=== PATIENT | female | born 1955 | race Caucasian/White ===

== ENCOUNTER 2019-11-21 13:44 | Outpatient (CLI) | payer BC, SELFPAY ==
[2019-11-21 14:12] LABS: Blood Urea Nitrogen 17 mg/dL (7-17); Calcium 9.9 mg/dL (8.4-10.2); Carbon Dioxide 29 mmol/L (22-30); Chloride 101 mmol/L (98-107); Estimated Glomerular Filt Rate > 60; Glucose 98 mg/dL (65-105); Potassium 4.2 mmol/L (3.4-5.0); Sodium 137 mmol/L (137-145)
== END 2019-11-21 13:45 | disposition home or self-care (01) ==
PROVIDERS: PCP Internal Medicine; Visit Provider Internal Medicine Cardiovascular Disease
DX: I10 Essential (primary) hypertension (principal)
CPT/HCPCS: 36415; 80048; 83735

== ENCOUNTER 2019-12-25 10:03 | Outpatient (CLI) | payer BC, SELFPAY ==
--- NOTE | ~2019-12-25 | NM_ITS ---
EXAMINATION: NM geeta stress w perfusion DATE: 12/25/2019 12:17 INDICATION: Dyspnea on exertion TECHNIQUE: Rest images were obtained following intravenous administration of 9.4 mCi Tc99m tetrofosmi n (Myoview). The patient was infused intravenously with Lexiscan (Regadenoson). Then, 30 mCi Tc99m te trofosmin (Myoview) was administered intravenously, and stress images were obtained. Data was reconst ructed into short axis and horizontal and vertical long axis SPECT images. Gated SPECT images were al so obtained. COMPARISON: None. FINDINGS: There is no definite reversible or fixed perfusion abnormality to suggest ischemia or infar ction. There is normal left ventricular chamber size, wall motion and ejection fraction. Left ventr icular ejection fraction measures 68%. IMPRESSION: 1. Normal myocardial perfusion at rest and during stress. 2. Left ventricular ejection fraction measuring 68%. Reviewed, dictated and finalized at location A.
--- NOTE | 2019-12-25 10:37 | EST_ITS ---
Patient Info Name: Caridad Gibson Age: 64 years : 1955 Gender: Female Ht: 68 in Wt: 212 lbs BSA: 2.18 m2 Exam Date: 12/25/2019 11:15 AM Exam Location: [facility] Stress Patient Status: Outpatient Admit Date: 12/25/2019 Staff Ordering Physician: Yazan Castellanos DO Attending Provider: Yazan Castellanos DO Exercise Technologist: Dianne Lopez RDCS Exercise Physician: Yazan Castellanos DO Exam Type: CA stress geeta w NM Study Info Indications R06.09 - Other forms of dyspnea A regadenoson stress test was performed. Summary 1. 1. Negative lexiscan stress test for ischemic ST changes by ECG criteria. 2. 2. Baseline hypertension. 3. 3. Nuclear scan to follow and will be reported separately. Please correlate with it. 4. 4. Patient informed of the above results. Protocol: Lexiscan Stress ECG Details Stage: REST Duration (min): 2 min : 20 sec HR (bpm): 89 SBP (mmHg): 163 DBP (mmHg): 96 Stage: REST Duration (min): 7 min : 7 sec HR (bpm): 91 SBP (mmHg): 163 DBP (mmHg): 96 Stage: STAGE 1 Duration (min): 1 min : 0 sec HR (bpm): 120 SBP (mmHg): 164 DBP (mmHg): 83 Stage: RECOVERY Duration (min): 1 min : 0 sec HR (bpm): 125 SBP (mmHg): 161 DBP (mmHg): 82 Stage: RECOVERY Duration (min): 2 min : 0 sec HR (bpm): 120 SBP (mmHg): 161 DBP (mmHg): 82 Stage: RECOVERY Duration (min): 3 min : 0 sec HR (bpm): 116 SBP (mmHg): 159 DBP (mmHg): 80 Stage: RECOVERY Duration (min): 4 min : 0 sec HR (bpm): 117 SBP (mmHg): 159 DBP (mmHg): 80 Stage: RECOVERY Duration (min): 5 min : 0 sec HR (bpm): 115 SBP (mmHg): 145 DBP (mmHg): 76 Stage: RECOVERY Duration (min): 6 min : 0 sec HR (bpm): 114 SBP (mmHg): 145 DBP (mmHg): 76 Stage: RECOVERY Duration (min): 6 min : 48 sec HR (bpm): 112 SBP (mmHg): 147 DBP (mmHg): 72 Rest HR: 91 bpm Peak HR: 128 bpm Rest Sys BP: 163 mmHg Peak Sys BP: 164 mmHg Max Pred HR: 157 bpm % Max Pred HR: 82 % Target HR: 133 bpm Max RPP: 20,992 bpm*mmHg Termination Reason: Completed protocol Cardiac Symptoms: Shortness of breath Total Time: 1 min : 0 sec Rest Bethea BP: 96 mmHg Peak Bethea BP: 83 mmHg Total Dose: 0.4 mg Resting ECG Sinus rhythm, IRBBB, PRWP. Stress ECG No ST changes. Arrhythmias None. Report Signatures
== END 2019-12-25 10:04 | disposition home or self-care (01) ==
PROVIDERS: PCP Internal Medicine; Visit Provider Internal Medicine Cardiovascular Disease
DX: R06.09 Other forms of dyspnea (principal); I10 Essential (primary) hypertension
CPT/HCPCS: 78452; 93017; A9502; J2785

== ENCOUNTER 2020-01-25 13:27 | Outpatient (CLI) | payer BC, SELFPAY ==
--- NOTE | 2020-01-27 16:45 | WPDPFTINT ---
PFT Interpretation PFT Interpretation: DOS: 01/25/2020 REQUESTING: dyspnea REASON FOR TESTING: Adelfo Manzanares PULMONARY FUNCTION TESTS Results are reproducible and reliable. Spirometry: FEV1 114%, FVC 116%. Normal FEV1%. No change with bronchodilator. AUG07-95% is 77% and increases 27% with bronchodilator. Lung volumes: TLC 122%, mild hyperinflation. Residual volume 133%, mild air trapping. Airway resistance 143%, increased. Diffusion: DLCO is 74% normal. Flow volume loop: Normal after bronchodilator. IMPRESSION: Mild hyperinflation and air trapping consistent with an obstructive process. Compared to a prior study 01/01/2019, the total lung capacity and residual volume are both decreased, closer to normal. TLC was 154%and RV was 218%. Lack of response to bronchodilator does not preclude use if clinically indicated. Dixie Malagon MD
== END 2020-01-25 13:28 | disposition home or self-care (01) ==
LOC: ANHPFT 13:28
PROVIDERS: PCP Internal Medicine; Visit Provider Internal Medicine Critical Care Medicine
DX: R06.00 Dyspnea, unspecified (principal); R91.8 Other nonspecific abnormal finding of lung field
CPT/HCPCS: 94060; 94726; 94729

== ENCOUNTER 2020-02-25 08:41 | Outpatient (CLI) | payer BC, SELFPAY ==
[2020-02-25] MEDS: SODIUM CHLORIDE 0.9% INJ 10 ML VIAL IV PUSH (10:58)
--- NOTE | 2020-02-29 12:17 | WPDPFTINT ---
PFT Interpretation PFT Interpretation: DOS: 02/25/2020 REQUESTING: Adelfo Grant REASON FOR TESTING: Dyspnea METHACHOLINE CHALLENGE This test was conducted per ATS guidelines. A previous study on 01/25/2020 showed normal spirometry. The patient was exposed to sequentially increasing doses of methacholine in the usual manner. Level 1 - saline Level 2 - 0.025 mg Level 3 - 0.25 mg Level 4 - 2.5 mg Level 5 - 10 mg Level 6 - 25 mg The test completed through the final level with maximal dose of methacholine, 25 mg without a drop in flows. Flows remained normal after bronchodilator was administered. IMPRESSION: This is a negative methacholine challenge with the patient having no significant decrease in flows at the highest dose of methacholine. The best use for a methacholine challenge is to rule out asthma. Clinical correlation is advised. Dixie Malagon MD
== END 2020-02-25 08:42 | disposition home or self-care (01) ==
LOC: ANHPFT 08:42
PROVIDERS: PCP Internal Medicine; Visit Provider Internal Medicine Critical Care Medicine
DX: R06.00 Dyspnea, unspecified (principal)
CPT/HCPCS: 36415; 82785; 86003; 94070; J7674

== ENCOUNTER 2020-05-10 11:14 | Outpatient (NON) | payer BC, SELFPAY ==
[2020-05-11 01:49] LABS: SARS-CoV-2 RNA PCR Positive
== END 2020-05-10 11:15 ==
LOC: ANHCOVIDDT 11:15
PROVIDERS: PCP Internal Medicine; Visit Provider Nurse Practitioner
DX: U07.1 COVID-19 (principal)
CPT/HCPCS: 87635; C9803; U0003

== ENCOUNTER 2020-10-02 08:50 | Outpatient (CLI) | payer BC, SELFPAY ==
[2020-10-02 09:09] LABS: Basophils Absolute Auto 0.1 K/mm3 (0.0-0.1); Basophils Percent Auto 0.7 % (0.2-1.2); Eosinophils Absolute Auto 0.2 K/mm3 (0-0.3); Eosinophils Percent Auto 2.6 % (0-4.4); Hematocrit 37.8 % (37.0-47.0); Hemoglobin 12.4 g/dL (12.0-15.0); Immature Granulocyte Absolute 0.04 K/mm3 (0.00-0.031); Immature Granulocyte Percent A 0.6 % (0-0.5); Lymphocytes Absolute Auto 2.03 K/mm3 (0.9-3.2); Mean Corpuscular HGB Conc 32.8 g/dl (32-36); Mean Corpuscular Hemoglobin 30.2 pg (26-34); Mean Corpuscular Volume 92.2 fl (80-100); Mean Platelet Volume 10.1 fl (7.4-10.4); Monocytes Absolute Auto 0.6 K/mm3 (0.1-0.6); Monocytes Percent Auto 8.4 % (2.6-8.5); Neutrophils Absolute Auto 4.1 K/mm3 (1.3-6.7); Neutrophils Percent Auto 58.7 % (45.5-73.1); Platelet Count Result 289 k/mm3 (150-375); Red Cell Distribution Width 12.8 % (11.5-14.5)
[2020-10-02 09:21] LABS: Alanine Aminotransferase 28 U/L (4-35); Albumin Level 4.6 g/dL (3.5-5.1); Alkaline Phosphatase 70 U/L (38-126); Anion Gap 8 mmol/L (8-16); Aspartate Amino Transferase 38 U/L (14-36); Bilirubin,Total 0.6 mg/dL (0.2-1.3); Blood Urea Nitrogen 18 mg/dL (7-17); Calcium 9.5 mg/dL (8.4-10.2); Carbon Dioxide 26 mmol/L (22-30); Chloride 103 mmol/L (98-107); Cholesterol 226 mg/dL (0-200); Estimated Glomerular Filt Rate > 60; Glucose 105 mg/dL (65-105); HDL Direct 49 mg/dL; Potassium 4.5 mmol/L (3.4-5.0); Sodium 137 mmol/L (137-145); Triglycerides 263 mg/dL (<150)
[2020-10-02 09:31] LABS: LDL Cholesterol Direct 109 mg/dL
[2020-10-02 10:10] LABS: Vitamin D 25 Hydroxy 43.4 ng/mL
== END 2020-10-02 08:51 | disposition home or self-care (01) ==
PROVIDERS: PCP Internal Medicine; Visit Provider Nurse Practitioner
DX: E55.9 Vitamin D deficiency, unspecified (principal); E78.2 Mixed hyperlipidemia; I10 Essential (primary) hypertension
CPT/HCPCS: 36415; 80053; 80061; 82306; 85025

== ENCOUNTER 2020-10-09 11:29 | Outpatient (CLI) | payer BC, SELFPAY ==
--- NOTE | ~2020-10-09 | XR_ITS ---
EXAMINATION: XR hip RT min 3V w AP pelvis INDICATION: Right hip pain TECHNIQUE: AP view the pelvis and three views of the right hip are obtained. COMPARISON: None available FINDINGS: Bone alignment is normal. There is no fracture. There is mild osteoarthritis of the hips. O steitis pubis is noted. The soft tissues are unremarkable. IMPRESSION: 1. Mild osteoarthritis. Reviewed, dictated and finalized at location B. IMPRESSION: 1. Mild osteoarthritis.
== END 2020-10-09 11:30 | disposition home or self-care (01) ==
PROVIDERS: PCP Internal Medicine; Visit Provider Nurse Practitioner
DX: M16.11 Unilateral primary osteoarthritis, right hip (principal)
CPT/HCPCS: 73502

== ENCOUNTER 2021-04-24 12:12 | Outpatient (CLI) | payer BC, SELFPAY ==
--- NOTE | ~2021-04-24 | XR_ITS ---
EXAMINATION: XR hand RT min 3V DATE: 04/24/2021 12:35 INDICATION: Right hand pain. TECHNIQUE: 3 views of right hand were obtained. COMPARISON: None. FINDINGS: Bone alignment is normal. No fracture. There is severe osteoarthritis of first carpometacar pal joint. There is mild osteoarthritis of most of the metacarpophalangeal joints and interphalangeal joints. There is moderate osteoarthritis of third proximal interphalangeal joint. IMPRESSION: 1. Polyarticular osteoarthritis. Reviewed, dictated and finalized at location A.
== END 2021-04-24 12:13 | disposition home or self-care (01) ==
LOC: ANHIMG 12:16
PROVIDERS: PCP Internal Medicine; Visit Provider Clinical Nurse Specialist
DX: M19.041 Primary osteoarthritis, right hand (principal)
CPT/HCPCS: 73130

== ENCOUNTER 2021-06-04 07:55 | Outpatient (CLI) | payer BC, SELFPAY ==
[2021-06-04 08:29] LABS: Alanine Aminotransferase 22 U/L (4-35); Albumin Level 4.6 g/dL (3.5-5.1); Alkaline Phosphatase 72 U/L (38-126); Anion Gap 8 mmol/L (8-16); Aspartate Amino Transferase 27 U/L (14-36); Bilirubin,Total 0.4 mg/dL (0.2-1.3); Blood Urea Nitrogen 16 mg/dL (7-17); Calcium 9.7 mg/dL (8.4-10.2); Carbon Dioxide 27 mmol/L (22-30); Chloride 99 mmol/L (98-107); Cholesterol 178 mg/dL (0-200); Estimated Glomerular Filt Rate > 60; Glucose 114 mg/dL (65-110); HDL Direct 50 mg/dL; Potassium 4.4 mmol/L (3.4-5.0); Sodium 134 mmol/L (137-145); Triglycerides 190 mg/dL (<150)
[2021-06-04 08:40] LABS: LDL Cholesterol Direct 83 mg/dL
== END 2021-06-04 07:56 | disposition home or self-care (01) ==
PROVIDERS: PCP Internal Medicine; Visit Provider Internal Medicine Cardiovascular Disease
DX: E78.2 Mixed hyperlipidemia (principal)
CPT/HCPCS: 36415; 80053; 80061

== ENCOUNTER 2021-06-17 02:01 | Day surgery (SDC) | payer BC, OTHER, SELFPAY ==
[2021-06-15 13:18] VITALS: BMI 31.9
--- NOTE | 2021-06-15 13:24 | PC.NURSE ---
Report to the Outpatient Waiting Room, entrance under the green pavilion located off [facility], at time 0900 on 06/17/21 . OR Time: __1000 . - You and your visitor will be asked a series of questions to screen for COVID 19 for your protection. - A mask is required within the hospital. - Only one visitor is allowed at this time. Patient visitors will be guided where to wait when not with patient. Preoperative COVID Testing Requirements: No COVID Test needed if: (proof is required; if not received patient will have Rapid Test prior to entry) - Patient has received COVID Vaccine at least 14 days prior to procedure date or - Patient has positive COVID test result within last 90 days of surgery date. COVID Test needed if above criteria is not met If not COVID vaccinated a COVID test must be conducted within 72 hours of surgery and patient is asked to isolate self from time of testing until procedure. You will go to the [employer] [facility] for your COVID testing. The [employer] [facility] is located at the corner of [address] [facility]. You will only be called if COVID results are positive and your surgeon may reschedule your elective surgery date. Patients may have clear liquids (water, carbonated beverages, clear teas, apple juice) until 3 hours prior to surgery with a maximum of 20 ounces. - No food from midnight until time of surgery - Infants may have breast milk until 4 hours before surgery, formula 6 hours prior to surgery. LIGHT BREAKFAST - Children will be allowed to drink immediately following surgery. If applicable, please bring a bottle or sippy cup to assist with drinking. Juice, water, soda, and popsicles are readily available. For infants on formula, please bring formula the day of surgery. Pacifiers are allowed. Take the following medications with a SIP of water the morning of surgery: __ALL ROUTINE AM MEDS Medications to discontinue per physician Date to take last dose Please no make-up, nail french, hairspray, perfume, deodorant, or body powder the day of surgery. No jewelry (including any body piercings) or valuables the day of surgery, leave them at home. Please take a shower or bath the night before, or the morning of, surgery with an antibacterial soap. Wear comfortable, loose fitting clothing. Children are encouraged to wear pajamas. - Jewelry must be removed prior to entering the operating room. Rings and piercings that are not removed may be cut off. - The hospital will not accept responsibility for valuables. - Please leave all valuables, including medications, at home the day of surgery. If you are going home after surgery, a licensed furniture delivery driver must drive you home. - NO public transportation without another adult. - We recommend that an adult stay with you for 24 hours following discharge. - We also recommend that you do not drive, make important decision, drink alcoholic beverages, or take any drugs that were not prescribed by your health care provider for at least 24 hours after your discharge time. For Pediatric surgeries, we recommend two adults accompany the child home (only one inside the building at this time). Follow any additional instructions given to you from your surgeon. Telephone instructions given to _PATIENT and asked if any additional questions and then verbalized understanding. Patient advised to call surgeon office or pre surgery nurse liaison [phone] if any additional questions.
[2021-06-17 09:17] VITALS: BP 181/84; PULSE 87; RESP 16; TEMP 36.8; O2SAT 98
--- NOTE | 2021-06-17 09:40 | WPDHPUPDATE1 ---
History and Physical Update Update Date/Time: 06/17/21 09:40 History and Physical has been reviewed, including an updated exam of the patient. There are NO changes in the patient's condition. Risks, benefits, and alternatives have been discussed and questions answered. Patient agrees to proceed with procedure.
[2021-06-17 09:50] VITALS: BP 190/91; PULSE 85; RESP 16; O2SAT 97
[2021-06-17 10:00] VITALS: BP 193/90; PULSE 91; RESP 16; O2SAT 96
[2021-06-17 10:10] VITALS: BP 171/79; PULSE 80; RESP 16; O2SAT 95
[2021-06-17 10:20] VITALS: BP 168/81; PULSE 79; RESP 16; O2SAT 95
[2021-06-17] MEDS: BACITRACIN OINTMENT 15 GM TUBE 1 APPLIC TOPICAL (10:25)
[2021-06-17 10:32] VITALS: BP 154/85; PULSE 74; RESP 20
--- NOTE | 2021-06-17 10:36 | P.OP_ITS ---
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 The patient was taken to the operating room and placed supine on the operating table. A time-out was held and confirmed. The right upper extremity was prepped and draped in the usual fashion. The site was carefully re-identified and marked for longitudinal incision. The area was infiltrated with 1% lidocaine with epinephrine. Adequate anesthesia was obtained. No tourniquet was utilized. The longitudinal incision was made as marked and blunt dissection through subcutaneous tissue revealed the extensor tendon just beneath the distal edge of the extensor retinaculum. The tendon with widened caliber at that area was clearly identified. An incision was made along 1 side of this into the tendon. The gelatinous content of the ganglion cyst was found and carefully stripped out with a curette and a 15 blade. Remainder of the tendon was not harmed. No repair with made on that. Additional synovitis was not noted. The skin wound was closed with interrupted 4-0 Monocryl sutures. The bandage with Xeroform and gauze and George wrap was applied. The patient was discharged with instructions in wound care and follow-up. She has a prescription for hydrocodon e 5/325 4. Estimated Blood Loss 1 Tourniquet Time 0 Drains No Packing No Pathology none sent Complications No immediate complications Condition stable Disposition same day
== END 2021-06-17 11:05 | disposition home or self-care (01) ==
PROVIDERS: PCP Internal Medicine; Visit Provider Plastic Surgery
PROC: (CPT 26160; principal; 2021-06-17 10:00)
DX: M67.441 Ganglion, right hand (principal); I10 Essential (primary) hypertension; F41.9 Anxiety disorder, unspecified
CPT/HCPCS: 26160; A9270

== ENCOUNTER 2021-12-07 09:29 | Outpatient (CLI) | payer BC, OTHER, SELFPAY ==
[2021-12-07 10:01] LABS: Alanine Aminotransferase 26 U/L (6-35); Albumin Level 4.8 g/dL (3.5-5.1); Alkaline Phosphatase 70 U/L (38-126); Anion Gap 5 mmol/L (8-16); Aspartate Amino Transferase 28 U/L (14-36); Bilirubin,Total 0.7 mg/dL (0.2-1.3); Blood Urea Nitrogen 14 mg/dL (7-17); Calcium 9.4 mg/dL (8.4-10.2); Carbon Dioxide 30 mmol/L (22-30); Chloride 102 mmol/L (98-107); Cholesterol 204 mg/dL (0-200); Estimated Glomerular Filt Rate > 60; Glucose 117 mg/dL (65-110); HDL Direct 46 mg/dL; Potassium 4.6 mmol/L (3.4-5.0); Sodium 137 mmol/L (137-145); Triglycerides 250 mg/dL (<150)
[2021-12-07 10:09] LABS: LDL Cholesterol Direct 92 mg/dL
== END 2021-12-07 09:30 | disposition home or self-care (01) ==
PROVIDERS: PCP Internal Medicine; Visit Provider Internal Medicine Cardiovascular Disease
DX: E78.2 Mixed hyperlipidemia (principal)
CPT/HCPCS: 36415; 80053; 80061

== ENCOUNTER 2022-04-05 12:05 | Outpatient (CLI) | payer BC, SELFPAY ==
[2022-04-05 18:59] LABS: Basophils Absolute Auto 0.1 K/mm3 (0.0-0.1); Eosinophils Absolute Auto 0.3 K/mm3 (0-0.3); Hematocrit 40.2 % (37.0-47.0); Hemoglobin 12.9 g/dL (12.0-15.0); Immature Granulocyte Absolute 0.03 K/mm3 (0.00-0.031); Immature Granulocyte Percent A 0.4 % (0-0.5); Lymphocytes Absolute Auto 1.58 K/mm3 (0.9-3.2); Mean Corpuscular HGB Conc 32.1 g/dl (32-36); Mean Corpuscular Hemoglobin 29.7 pg (26-34); Mean Corpuscular Volume 92.4 fl (80-100); Mean Platelet Volume 10.5 fl (7.4-10.4); Monocytes Absolute Auto 0.7 K/mm3 (0.1-0.6); Monocytes Percent Auto 10.2 % (2.6-8.5); Neutrophils Absolute Auto 4.1 K/mm3 (1.3-6.7); Neutrophils Percent Auto 60.4 % (45.5-73.1); Platelet Count Result 368 k/mm3 (150-375); Red Blood Count 4.35 M/mm3 (4.2-5.4); Red Cell Distribution Width 12.6 % (11.5-14.5); White Blood Count 6.9 K/mm3 (4.5-10.0)
[2022-04-05 20:16] LABS: Alanine Aminotransferase 26 U/L (6-35); Albumin Level 4.9 g/dL (3.5-5.1); Alkaline Phosphatase 88 U/L (38-126); Anion Gap 14 mmol/L (8-16); Aspartate Amino Transferase 34 U/L (14-36); Bilirubin,Total 0.5 mg/dL (0.2-1.3); Blood Urea Nitrogen 12 mg/dL (7-17); Calcium 10.8 mg/dL (8.4-10.2); Carbon Dioxide 26 mmol/L (22-30); Chloride 98 mmol/L (98-107); Cholesterol 139 mg/dL (0-200); Estimated Glomerular Filt Rate > 60; Glucose 101 mg/dL (65-110); HDL Direct 36 mg/dL; Potassium 4.4 mmol/L (3.4-5.0); Sodium 138 mmol/L (137-145); Triglycerides 155 mg/dL (<150)
[2022-04-05 20:27] LABS: LDL Cholesterol Direct 63 mg/dL
[2022-04-05 20:33] LABS: Vitamin D 25 Hydroxy 45.1 ng/mL
== END 2022-04-05 12:06 | disposition home or self-care (01) ==
PROVIDERS: PCP Internal Medicine; Visit Provider Clinical Nurse Specialist
DX: J44.9 Chronic obstructive pulmonary disease, unspecified (principal); I10 Essential (primary) hypertension; E78.5 Hyperlipidemia, unspecified; E55.9 Vitamin D deficiency, unspecified
CPT/HCPCS: 36415; 80053; 80061; 82306; 84443; 85025

== ENCOUNTER 2022-04-07 07:35 | Outpatient (CLI) | payer BC, SELFPAY ==
--- NOTE | ~2022-04-07 | US_ITS ---
EXAMINATION: US right upper quadrant DATE: 04/07/2022 08:06 INDICATION: Abdominal distention TECHNIQUE: Multiple grayscale and Doppler ultrasound images of the abdomen were obtained. COMPARISON: None available FINDINGS: The head and body of the pancreas are normal. The pancreatic tail is obscured by bowel gas. The liver is normal with normal echogenicity and echotexture. No surface nodularity. Normal hepatope leah flow in the main portal vein. The gallbladder is normal with no abnormal wall thickening, pericho lecystic fluid or stones. The normal common bile duct measures 4 mm. There was no sonographic Lopez sign. IMPRESSION: 1. Normal sonographic study of the gallbladder. Reviewed, dictated and finalized at location A.
== END 2022-04-07 07:36 | disposition home or self-care (01) ==
PROVIDERS: PCP Internal Medicine; Visit Provider Clinical Nurse Specialist
DX: R14.0 Abdominal distension (gaseous) (principal); K21.9 Gastro-esophageal reflux disease without esophagitis
CPT/HCPCS: 76705

== ENCOUNTER 2023-01-11 13:20 | Outpatient (CLI) | payer BC, SELFPAY ==
[2023-01-11 20:29] LABS: Basophils Absolute Auto 0.1 K/mm3 (0.0-0.1); Basophils Percent Auto 0.7 % (0.2-1.2); Eosinophils Absolute Auto 0.1 K/mm3 (0-0.3); Eosinophils Percent Auto 1.8 % (0-4.4); Hematocrit 37.5 % (37.0-47.0); Hemoglobin 11.9 g/dL (12.0-15.0); Immature Granulocyte Absolute 0.03 K/mm3 (0.00-0.031); Immature Granulocyte Percent A 0.4 % (0-0.5); Lymphocytes Absolute Auto 2.01 K/mm3 (0.9-3.2); Lymphocytes Percent Auto 29.9 % (18.3-44.2); Mean Corpuscular HGB Conc 31.7 g/dl (32-36); Mean Corpuscular Hemoglobin 29.5 pg (26-34); Mean Corpuscular Volume 92.8 fl (80-100); Mean Platelet Volume 10.6 fl (7.4-10.4); Monocytes Absolute Auto 0.6 K/mm3 (0.1-0.6); Monocytes Percent Auto 9.2 % (2.6-8.5); Neutrophils Absolute Auto 3.9 K/mm3 (1.3-6.7); Platelet Count Result 301 k/mm3 (150-375); Red Blood Count 4.04 M/mm3 (4.2-5.4); Red Cell Distribution Width 12.5 % (11.5-14.5); White Blood Count 6.7 K/mm3 (4.5-10.0)
[2023-01-11 21:02] LABS: Erythrocyte Sedimentation Rate 17 mm/hr (0-20)
[2023-01-11 21:21] LABS: Alanine Aminotransferase 22 U/L (6-35); Albumin Level 4.6 g/dL (3.5-5.1); Alkaline Phosphatase 67 U/L (38-126); Anion Gap 8 mmol/L (8-16); Aspartate Amino Transferase 35 U/L (14-36); Bilirubin,Total 0.8 mg/dL (0.2-1.3); Blood Urea Nitrogen 17 mg/dL (7-17); Calcium 9.8 mg/dL (8.4-10.2); Carbon Dioxide 32 mmol/L (22-30); Chloride 92 mmol/L (98-107); Cholesterol 188 mg/dL (0-200); Estimated Glomerular Filt Rate > 60; Glucose 92 mg/dL (65-110); HDL Direct 53 mg/dL; Potassium 4.1 mmol/L (3.4-5.0); Sodium 132 mmol/L (137-145); Triglycerides 169 mg/dL (<150)
[2023-01-11 21:32] LABS: LDL Cholesterol Direct 82 mg/dL
[2023-01-11 21:38] LABS: Rheumatoid Factor < 12.0 IU/ML (<12)
[2023-01-11 21:50] LABS: Thyroid Stimulating Hormone 0.929 uIU/mL (0.465-4.680)
[2023-01-11 22:15] LABS: Vitamin D 25 Hydroxy 56.9 ng/mL
[2023-01-12 15:27] LABS: Iron 137 ug/dL (37-170)
[2023-01-12 15:37] LABS: Percent Iron Saturation 28 % (20-50)
[2023-01-14 08:52] LABS: ANA Cascade Screen Negative (Negative)
== END 2023-01-11 13:21 | disposition home or self-care (01) ==
LOC: ANHGOSHLAB 13:22
PROVIDERS: PCP Internal Medicine; Visit Provider Clinical Nurse Specialist
DX: M25.40 Effusion, unspecified joint (principal); I10 Essential (primary) hypertension; E78.5 Hyperlipidemia, unspecified; E55.9 Vitamin D deficiency, unspecified
CPT/HCPCS: 36415; 80053; 80061; 82306; 82728; 83540; 83550; 84443; 85025; 85652; 86038; 86430

== ENCOUNTER → 2023-01-11 13:37 | Outpatient (CLI) | payer BC, SELFPAY ==
--- NOTE | ~2023-01-11 | XR_ITS ---
XR_CERV2-3V_CR DATE: 01/11/2023 13:53 INDICATION: Cervical radiculopathy TECHNIQUE: AP, open mouth, lateral views COMPARISON: None FINDINGS: There is reversal of cervical curvature. There is minimal anterolisthesis at C3-4. There is severe degenerative disc disease with nearly complete obliteration of disc space and promine nt spurring at C5-6 and C6-7, with associated mild retrolisthesis at C6-7. There is prominent uncovertebral joint spurring bilaterally at C4-5 and C5-6. There is degenerative c hange at the apophyseal joints. C1 and C2 are normally aligned and the odontoid process is intact. No fracture or dislocation or lock ed facet or prevertebral soft tissue swelling. IMPRESSION: Reversal cervical curvature Prominent cervical spondylosis Reviewed, dictated and finalized at Location A. Reviewed, dictated and finalized at location L.
== END ==
PROVIDERS: PCP Clinical Nurse Specialist; Visit Provider Clinical Nurse Specialist
DX: M47.22 Other spondylosis with radiculopathy, cervical region (principal)
CPT/HCPCS: 72040

== ENCOUNTER 2023-02-07 12:46 | Outpatient (CLI) | payer BC, SELFPAY ==
--- NOTE | ~2023-02-07 | MR_ITS ---
EXAMINATION: MR cervical spine wo con DATE: 02/07/2023 13:18 INDICATION: Cervical radiculopathy. TECHNIQUE: Magnetic resonance imaging (MRI) of the cervical spine was performed without intravenous c ontrast. COMPARISON: Cervical spine radiographs 01/11/2023 FINDINGS: There is 9 degrees dextrocurvature of cervical spine. There is kyphosis of cervical spine. There is 2 mm anterolisthesis of C3 on C4 and 2 mm retrolisthesis of C5 on C6. There is mild chronic anterior wedging of C4, C5, and C6 vertebral bodies. There is mildly decreased disc height at C3-C4 a nd severely decreased disc height at C4-C5 and C5-C6. The spinal cord signal intensity is normal. The following disc levels are specifically discussed: C2-C3: The disc does not extend beyond the endplate margin. There is no uncovertebral joint osteoarth ritis. There is ankylosis of the facet joints with moderate right and mild left hypertrophy. There is mild right neural foraminal stenosis. There is no central canal stenosis. C3-C4: There is a central protrusion. There is mild left uncovertebral joint osteoarthritis. There is severe left facet joint osteoarthritis. There is moderate left neural foraminal stenosis. There is n o central canal stenosis. C4-C5: The disc is bulging. There is severe bilateral uncovertebral joint osteoarthritis. There is mi ld right and severe left facet joint osteoarthritis. There is moderate bilateral neural foraminal porsha nosis. There is mild central canal stenosis with ventral indentation of spinal cord. C5-C6: This is bulging. There is severe bilateral uncovertebral joint osteoarthritis. There is modera te bilateral facet joint osteoarthritis. There is moderate bilateral neural foraminal stenosis. There is mild central canal stenosis with ventral indentation of the spinal cord. C6-C7: There is a central extrusion. There is mild left uncovertebral joint osteoarthritis. There is severe bilateral facet joint osteoarthritis. There is mild bilateral neural foraminal stenosis. There is mild central canal stenosis. C7-T1: There is a central protrusion. There is no uncovertebral joint osteoarthritis. There is severe right and moderate left facet joint osteoarthritis. There is mild right neural foraminal stenosis. T here is no central canal stenosis. IMPRESSION: 1. Severe cervical spondylosis. Reviewed, dictated and finalized at location A.
== END 2023-02-07 12:47 | disposition home or self-care (01) ==
PROVIDERS: PCP Clinical Nurse Specialist; Visit Provider Clinical Nurse Specialist
DX: M47.22 Other spondylosis with radiculopathy, cervical region (principal)
CPT/HCPCS: 72141

== ENCOUNTER → 2023-04-07 13:21 | Outpatient (CLI) | payer BC, SELFPAY ==
--- NOTE | ~2023-04-07 | MR_ITS ---
MRI of the lumbar spine Clinical History: Radiculopathy Technique: Axial T2-weighted images, and sagittal T1-weighted, T2-weighted, and T2 fat-sat images wer e acquired. Findings: There is no fracture identified. There is a 5 mm anterolisthesis of L3 over L4. There is 3 mm anterolisthesis of L4 over L5. No suspicious bone marrow signal abnormality seen. At L1-L2, there is minimal disc bulge and minimal facet arthropathy. No central canal stenosis or madison ral foraminal narrowing. At L2-L3, there is disc bulge and moderate facet arthropathy. There is mild central canal stenosis. B ilateral neural foramina are preserved. At L3-L4, there is disc bulge/uncovering with severe facet arthropathy. There is moderate to advanced central canal stenosis/thecal sac compression. There is mild bilateral neural foraminal narrowing. At L4-L5, there is diffuse disc bulge with advanced facet arthropathy. No central canal stenosis. The re is mild to moderate right neural foraminal narrowing. Left neural foramen preserved. At L5-S1, there is minimal disc bulge. There is mild facet arthropathy. No central canal stenosis or left neural foraminal narrowing. There is mild right neural foraminal narrowing. Paravertebral soft tissues are unremarkable. Impression: Moderate to advanced degenerative spondylosis, as detailed above. 5 mm anterolisthesis of L3 over L4. 3 mm anterolisthesis of L4 over L5. Reviewed, dictated and finalized at [facility]. Impression: Moderate to advanced degenerative spondylosis, as detailed above. 5 mm anterolisthesis of L3 over L4. 3 mm anterolisthesis of L4 over L5.
== END ==
PROVIDERS: PCP Clinical Nurse Specialist; Visit Provider Nurse Practitioner Family
DX: M47.26 Other spondylosis with radiculopathy, lumbar region (principal)
CPT/HCPCS: 72148

== ENCOUNTER 2024-02-03 11:50 | Emergency (ER) | payer MEDICARE, BC, SELFPAY ==
--- NOTE | ~2024-02-03 | XR_ITS ---
Right foot Technique: AP, oblique, and lateral views were obtained. Clinical History: Injury Findings: No acute fracture or dislocation is seen. Osseous alignment is anatomic. There is moderate first MTP joint degenerative change. There is moderate degenerative change of the third TMT joint. So ft tissues are unremarkable. Impression: Degenerative changes of the first MTP joint and third TMT joint, as above. Reviewed, dictated and finalized at location . Impression: Degenerative changes of the first MTP joint and third TMT joint, as above.
--- NOTE | 2024-02-03 11:59 | ED.LOWEXIN ---
HPI - Extremity Injury (Lower) General Chief Complaint: Extremity Injury, Lower Stated Complaint: rt foot injury Time Seen by Provider: 02/03/24 11:59 Source: patient Mode of arrival: ambulatory Limitations: no limitations History of Present Illness HPI Narrative: Caridad is a 68-year-old female patient presenting to the clinic today with complaints of right foot pain/injury. She reports 2-3 weeks ago she twisted her foot when walking/sliding in the rain while in sandals. Is having pain to the 2nd toe and to the distal dorsal and volar midfoot. Second toe is caught on great toe but it appears patient has hammertoe-but states its more curved than her of the normal. Related Data Home Medications Medication Instructions Recorded Confirmed aspirin 325 mg tablet 325 mg PO Q4H PRN Pain 06/15/21 02/03/24 ascorbic acid (vitamin C) 500 mg 500 mg PO DAILY 05/27/23 02/03/24 chewable tablet omega-3 fatty acids [Fish Oil] 1 cap PO DAILY 05/27/23 02/03/24 Allergies Allergy/AdvReac Type Severity Reaction Status Date / Time No Known Allergies Allergy Verified 02/03/24 12:01 Review of Systems Review of Systems: Pertinent positives per HPI. Patient denies any fever, chills, rash, headache, visual changes, dizziness, cough, runny nose, sore throat, shortness of breath, chest pain, palpitations, nausea, vomiting, diarrhea, constipation, abdominal pain, or any urinary issues. [facility] Past Medical History Medical History Arthritis COPD (chronic obstructive pulmonary disease) COVID-19 Hyperlipidemia Hypertension Surgical History Surgical History H/O Spinal surgery Rhizotomy 2004 History of bilateral tubal ligation 1984 S/P epidural steroid injection Family History Family History Father Family history of diabetes mellitus in first degree relative Sibling Family history of diabetes mellitus in first degree relative Mother Family history of malignant neoplasm of breast in first degree relative Social History Social History Smoking packs per day: 0.5 Smoking cigarettes per day: 10.0 Years smoked: 30 Smoking pack-years: 15.00 Smoking status: Former smoker Tobacco type: cigarettes Second hand tobacco smoke exposure: No Smoking end date: 06/27/15 Alcohol intake: current Alcohol use details: occasionally Substance use: never Lack of Transportation: No Lack of Food: Never True Current Housing: I Have Housing Concerned About Future Housing: No Difficulty Paying Gas/Electric Bills: No Difficulty Paying for Meds: No Currently Unemployed: No Education: Trade/Vocational Certificate Difficulty w/ Childcare or Family Care: No Living arrangements: with family Spiritual care concerns: No Comments At the time of my signature, I reviewed and agree with the nursing past medical, surgical, social, and family history. There is no relevant family history pertinent to the patient complaint. Exam Narrative: General: Well-developed, well nourished, in no apparent distress Head: Normocephalic, atraumatic. Cardio: Regular rate and rhythm, s1 and s2 normal, no murmur appreciated. Resp: Clear to auscultation bilaterally, no rhonchi, rales, wheezing or rubs. Musculoskeletal: No deformity, right 2nd hammertoe, tender to palpation over the distal and volar midfoot midfoot, some discomfort with flexion and extension of the toes, grossly normal range of motion, muscle strength strong and equal, peripheral pulse strong, no edema, no cyanosis, normal gait and station Course Course Emergency Course: Portions of this record may have been created with voice recognition software. Level of Care: Express Care Visit Vital Signs Vital signs: Vital signs reviewed
[2024-02-03 12:08] VITALS: BP 144/78; PULSE 64; RESP 18; TEMP 36.1; O2SAT 99
== END 2024-02-03 12:44 | disposition home or self-care (01) ==
PROVIDERS: Emergency Provider Nurse Practitioner Family; PCP Internal Medicine
DX: M79.671 Pain in right foot (principal); M19.071 Primary osteoarthritis, right ankle and foot; Z87.891 Personal history of nicotine dependence; J44.9 Chronic obstructive pulmonary disease, unspecified; E78.5 Hyperlipidemia, unspecified; I10 Essential (primary) hypertension; M19.90 Unspecified osteoarthritis, unspecified site; Z79.82 Long term (current) use of aspirin
CPT/HCPCS: 73630; 99213; G0463

== ENCOUNTER 2024-05-28 08:37 | Outpatient (CLI) | payer MEDICARE, SELFPAY ==
--- NOTE | ~2024-05-28 | CT_ITS ---
CT Scan of the Chest without Contrast: Clinical Indication: Lung cancer screening, nicotine dependence Technique: Contiguous sections were acquired throughout the chest without intravenous contrast. Dose reduction technique was used on this scan by utilizing automated exposure control and iterative recon struction technique. The dose-length product (DLP) was 195.09 mGy-cm. Findings: There is no evidence of any significant mediastinal, hilar or axillary lymphadenopathy. The mediastin al soft tissues appear normal. There is no evidence of pleural or pericardial effusion. The lungs are clear. No pulmonary nodules or infiltrates are noted. Images through the upper abdomen reveal no abnormalities. Impression: Lung RADS 1: Negative. 12 month follow-up screening CT advised. Reviewed, dictated and finalized at location . [employer] [facility] Impression: Lung RADS 1: Negative. 12 month follow-up screening CT advised.
--- NOTE | 2024-06-04 19:16 | WPDPFTINT ---
PFT Procedure Performed PFT Procedure Performed Spirometry with Pre/Post Bronchodilator Plethysmography (Lung Vol) Diffusing Cap (DLCO) Flow Vol Loop PFT Interpretation DOS: 05/28/2024 REQUESTING: Neli Boothe PA-C REASON FOR TESTING: shortness of breath PULMONARY FUNCTION TESTS Results are reliable and reproducible. Repeatability of spirometry FEV1 maneuver pre and post bronchodilator is Grade A. Spirometry: The pre-bronchodilator FEV1 is2.43 L, 93%. The pre-bronchodilator FVC is3.26 L, 96%. The FEV1/FVC ratio is74%, normal. After bronchodilator, the FEV1 is 2.53 L, 96%, +4%. The post-bronchodilator FVC is 3.38, 100%, +4%. The FEV1/FVC ratio is75%. Lung volumes: The total lung capacity is 6.83 L, 121%, increased. The residual volume is 2.46 L, 105%, normal. The RV/TLC is 36%. Airway resistance is increased. Diffusion: DLCO is 18.3, 82%. The DLCO/VA is 3.51, 85%. Flow volume loop: The flow volume loop normal. IMPRESSION: This study shows normal spirometry without response to bronchodilator, mild hyperinflation with normal diffusion. Compared to a prior study 01/25/2020, valaues are similar. Dixie Malagon MD
== END 2024-05-28 08:38 | disposition home or self-care (01) ==
PROVIDERS: PCP Internal Medicine; Visit Provider Physician Assistant
DX: Z12.2 Encounter for screening for malignant neoplasm of respiratory organs (principal); J43.9 Emphysema, unspecified; Z87.891 Personal history of nicotine dependence
CPT/HCPCS: 71271; 94060; 94726; 94729

== ENCOUNTER 2024-07-31 07:25 | Outpatient (CLI) | payer MEDICARE, SELFPAY ==
--- NOTE | 2024-07-31 | ECG_ITS ---
Test Date: 2024-07-31 08:41:46 Measurements Intervals [place] Rate: 61 P: 53 KS: 228 QRS: -49 QRSD: 121 T: 52 QT: 420 QTc: 424 Interpretive Statements SINUS RHYTHM WITH FIRST DEGREE AV BLOCK LEFT ANTERIOR FASCICULAR BLOCK LEFT VENTRICULAR HYPERTROPHY WITH ST-T CHANGE ABNORMAL ECG No previous ECG available for comparison Electronically Signed On 07-31-2024 08:48:02 [facility] by Yazan Castellanos D.O.
--- NOTE | ~2024-07-31 | NM_ITS ---
EXAMINATION: NM geeta stress w perfusion DATE: 07/31/2024 10:47 INDICATION: Chest pain. TECHNIQUE: Rest images were obtained following intravenous administration of 10.63 mCi Tc99m tetrofos min (Myoview). The patient was infused intravenously with Lexiscan (regadenoson). Then, 33.9 mCi Tc99 m tetrofosmin (Myoview) was administered intravenously, and supine and prone stress images were obtai shawna. Data was reconstructed into short axis and horizontal and vertical long axis SPECT images. Gated SPECT images were also obtained. COMPARISON: Myocardial perfusion imaging 12/25/2019 FINDINGS: There is no definite reversible or fixed perfusion abnormality to suggest ischemia or infar ction. There is no segmental wall motion abnormality. Left ventricular ejection fraction measures 4 8%. IMPRESSION: 1. No definite ischemia or infarct. 2. Left ventricular ejection fraction measuring 48%. Reviewed, dictated and finalized at location A. BLE PROCESSOR
--- OUTSIDE RECORDS SUMMARY | 2024-07-31 07:29 | XMS_ITS | Clinical Summary ---
Author Organization [facility] Address [address] [place] [address]. [place] [address] [place] [address] Care Team Providers Care Upholstery Trimmer Name Role Phone Unavailable Primary Care Provider Unavailabl e Allergies No known active allergies Medications aspirin 325 MG tablet Take 1 tablet (325 mg total) by mouth every 4 (four) hours as needed for Pain. Active atorvastatin (LIPITOR) 20 MG tablet Take 1 tablet (20 mg total) by mouth nightly at bedtime. Active gabapentin (NEURONTIN) 800 MG tablet Take 1 tablet (800 mg total) by mouth 2 (two) times daily. Active omega-3 fatty acid (FISH OIL) 500 MG capsule Take 1 capsule (500 mg total) by mouth daily. Active PARoxetine (PAXIL) 20 MG tablet Take 1 tablet (20 mg total) by mouth every morning. Active albuterol sulfate HFA 108 (90 Base) MCG/ACT inhaler Inhale 2 puffs into the lungs every 4 (four) hours as needed for Wheezing. 6.7 g 1 03/05/2024 Active Active Problems Problem Noted Date Diagnosed Date COPD with exacerbation ([facility]) 024 Social History Tobacco Use Types Packs/Day Years Used Date Smoking Tobacco: Never Assessed Comments No Sex and Gender Information Value Date Recorded Sex Assigned at Not on file Legal Sex Female 7:49 AM CDT Gender Identity Not on file Sexual Orientation Not on file Last Filed Vital Signs Vital Sign Reading Time Taken Comments Blood Pressure 158/87 03/05/2024 11:48 AM CDT Pulse 104 03/05/2024 2:30 PM CDT Temperature 36.2 ??C (97.1 ??F) 03/05/2024 1 1:48 AM CDT Respiratory Rate 25 03/05/2024 2:30 PM CDT Oxygen Saturation 90% 03/05/2024 2:30 PM CDT Inhaled Oxygen Concentration - - Weight 97.4 kg (214 lb 11.7 oz) 03/05/2024 3:33 AM CDT Height 167.6 cm (5' 6 ) 03/04/2024 7:52 AM CDT Body Mass Index 34.66 03/04/2024 7:52 AM CDT Plan of Treatment Health Maintenance Due Date Last Done Comments Colorectal Cancer Screening Colonoscopy (10 Years) 1955 Hepatitis C 1974 DTaP, Tdap and Td Vaccines (1 - Tdap) 12/20/1975 Mammogram Screening 1996 RSV Immunization or 60+ Years (1 - Risk 60-74 years 1-dose series) 2016 Zoster Vaccines (2 of 2) 05/31/2021 04/05/2021 Annual Medicare Wellness Visit 2021 [place]a Scan (General) 2021 COVID-19 Vaccine ( season) 2024 05/04/2022, 05/14/2021, 09/26/2020, Additional history exists Influenza Adult (#1) 2024 05/04/2022, 04/05/2021, 05/04/2020, Additional history exists Pneumococcal Vaccine: 65+ Years Completed 03/22/2023 Meningococcal B Vaccine Aged Out No l onger eligible based on patient's age to complete this topic Meningococcal Vaccine Aged Out No theodore marelne eligible based on patient's age to complete this topic RSV Immunizations Under 20 Months Aged Out No longer eligible based on patient's age to complete this topic Insurance [facility] Advance Directives * Full Code (Latest Code Status on File) Date Activated Date Inactivated Comments 03/04/2024 10:38 AM 03/05/2024 6:58 PM
--- OUTSIDE RECORDS SUMMARY | 2024-07-31 07:29 | XMS_ITS | Data Portability ---
Author Organization [place] [facility], Main Office Address [address] [place] [address] Care Team Providers Care Certified Corporate Travel Executive Name Role Phone COLLIN MORGAN Primary Care Provider [phone] COLLIN MORGAN Referring Provider Assessment Encounter Date Assessment Date Assessment LastModified by Organization Details LastModified Time 07/19/2023 07/19/2023 67-year-old patient presents today with right knee pain that has been going on for about 2 months. She denies any specific injury. She states that she has been having pain with during her daily exercises and walking. The pain is keeping her awake at night. The knee has also been swelling up. For treatment she has tried taking anti-inflammatori es, using voltaren, and exercising daily, which has not helped. She denies any issues with the knee in the past. Review of systems per patient questionnaire Imaging: X-rays reviewed show no acute bony abnormality, no fracture. She does have a [id number]-wmsk osteoarthritis on the lateral side of right knee. Preserved joint space on the medial side. Physical exam :Nonantalgic gait. 1+ effusion. Tenderness to palpation of the lateral joint line. Range of motion 0-150. She has pain with deep flexion. Positive Sterling's. Negative Ambar's with firm endpoint, negative posterior drawer, stable to varus valgus stress. Today we discussed the risks and benefits of a cortisone injection. She elected to proceed with the injection today. We will also order meloxicam for anti-inflammatory therapy. She can continue to exercise on her own but we recommend closed chain exercises that do not put increased stress on the knee. We can see her back in 4-6 weeks to check her progress. Not available 07/19/2023 21:56:55 08/30/2023 08/30/2023 67-year-old patient presents today to follow up for right knee pain. At her last appointment we ordered meloxicam and did a cortisone injection. She states today that the knee is feeling much better and she is no longer experiencing swelling. She has been continuing to do exercises and taking the meloxicam as needed. Physical exam :Nonantalgic gait. No effusion. No tenderness with palpitation. Range of motion 0-150 with out pain. We recommend she continue to exercises at take the meloxicam as needed. We discussed that she can get cortisone injections every 3-4 months if the pain returns. We can see her back as needed for pain or if any new issues arise. Not available 08/30/2023 20:47:40 10/19/2023 10/19/2023 67-year-old female presents for a new complaint of her right shoulder. She has had pain in the shoulder for a couple months. She denies any acute injury, but she is very active in goes to work out every day, including weights and water aerobics. She has been taking meloxicam, has not had any other treatments. She has pain with reaching back and overhead. She is right-hand dominant. She is tenderness palpation over the AC joint and some tenderness over the biceps as well. Range of motion 150/30/lower lumbar. 5/5 rotator cuff strength, although with some discomfort with resisted external rotation elevation. Positive Naina. Positive Barnes, positive Westchester's. Neurovascular intact. X-rays of the shoulder were obtained reviewed, demonstrating no acute bony abnormality, preserved glenohumeral joint space. Some AC joint hypertrophy, some sclerosis on the underside of the acromion For her shoulder impingement/tendi nitis, we will begin with a course of conservative management. We will send her to physical therapy. She should continue take her meloxicam. We will see her back in 6-8 weeks after the course of treatment if she does not have improvement. She also reports pain at night which disrupts her sleep. We discussed a cortisone injection she wanted to proceed with that. She tolerated it well. [email or web address] Not available 10/19/2023 15:37:35 04/04/2024 04/04/2024 68-year-old patient presents today with bilateral thumb pain that has been going on for many years but has recently gotten worse. She states that gripping things has become very painful. She also experiences weakness with grasping. This has caused her to drop items. She states that she thinks she got injections into the CMC joint many years ago that were helpful for her. She takes gabapentin daily but no anti-inflammatori es. Imaging: X-rays reviewed of bilateral hands show mild to moderate osteoarthritic changes in bilateral CMC joint spaces. No acute bony abnormality or fracture. Physical exam: Tenderness with palpitation around the base of bilateral thumbs. Positive CMC grind. No issues with range of motion. Negative Laura's. Sensation intact. We discussed treatment options including thumb spica bracing, anti-inflammatori es, and cortisone injection. She elected to proceed with all 3 today. We will fit her for bilateral thumb spica braces. Injections were given without issue. We will order meloxicam. We can see her back as needed for pain. She is in agreement with this plan. 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 She has been getting cortisone injections into all areas, which are helpful. The last right knee injection was 1 year ago, her last thumb injections were in March. She would like to proceed with injections again today. Physical exam: Tenderness with palpitation around the base of bilateral thumbs. Positive CMC grind. No issues with range of motion. Sensation intact. Knee: Tenderness to palpation of the lateral joint line. Range of motion 0-150. She has pain with deep flexion. Positive Sterling's. Stable ligaments. We discussed she should continue with bracing and anti-inflammatori es as needed. She can have injections every 3 months. We can see her back as needed for pain. She is in agreement with this plan. Not available 07/06/2024 10:20:47 Plan of Treatment Reminders Order Date Submit Date Provider Last Modified By Organization Details Last Modified Time Details Appointments None recorded. Lab None recorded. Referral physical therapist referral - Eval and treat 2023 024 [facility] [place] [facility], [address], [place], [address], 4 15:26:30 Procedures injection/a spiration joint/bursa (PROC) 2023 024 [email or web address] In-Office Order, Internal Use Only DO Not Attach Compendium DO Not Attach Compendium, Do Not Delete/merge, [id number] 14:56:13 injection/a spiration joint/bursa (PROC) 2023 024 [email or web address] 3 In-Office Order, Internal Use Only DO Not Attach Compendium DO Not Attach Compendium, Do Not Delete/merge, [id number] 15:37:25 injection/a spiration joint/bursa (PROC) 2023 024 [email or web address] 3 In-Office Order, Internal Use Only DO Not Attach Compendium DO Not Attach Compendium, Do Not Delete/merge, [id number] 10:33:52 injection/a spiration joint/bursa (PROC) 2024 025 In-Office Order, Internal Use Only DO Not Attach Compendium DO Not Attach Compendium, Do Not Delete/merge, [id number] 5 10:06:41 injection/a spiration joint/bursa (PROC) 2024 025 [email or web address] In-Office Order, Internal Use Only DO Not Attach Compendium DO Not Attach Compendium, Do Not Delete/merge, [id number] 5 10:01:13 Surgeries None recorded. Imaging XR, knee 2023 024 [facility] [place], [address], [place], [address], 4 21:52:55 XR, shoulder 2023 024 DIEUDONNE [facility] [place], [address], [place], [address], 4 12:18:43 XR, hand 2023 024 [facility] [place], [address], [place], [address], 4 09:17:11 Medication Orders bupivacaine HCl 0.5 % (5 mg/mL) injection solution 2023 024 Not available 15:12:05 Kenalog 10 mg/mL suspension for injection 2023 024 Not available 15:12:10 Mobic 15 mg tablet [address] [facility], [facility], [place], [address], 14:56:13 bupivacaine HCl 0.5 % (5 mg/mL) injection solution 2023 024 [address] [place], [address], 4 17:15:03 Kenalog 10 mg/mL suspension for injection 2023 024 [address] [place], [address], 4 17:15:03 bupivacaine HCl 0.5 % (5 mg/mL) injection solution 2023 024 [address] [place], [address], 4 15:29:32 Kenalog 10 mg/mL suspension for injection [address]/[facility], [address] [place] [address], [address], 4 15:29:32 meloxicam 15 mg tablet 2023 024 [email or web address] [facility], [address] [place] [address], [address], 4 15:29:32 bupivacaine HCl 0.5 % (5 mg/mL) injection solution [address]/Pharmacy [facility]25[facility], [address] [place] [address], [address], 5 10:42:26 Kenalog 10 mg/mL suspension for injection [address]/[facility], [address] [place] [address], [address], 5 10:42:26 bupivacaine HCl 0.5 % (5 mg/mL) injection solution [address]/[facility], [address] [place] [address], [address], 5 10:42:26 Kenalog 10 mg/mL suspension for injection [address]/[facility], [address] [place] [address], [address], 5 10:42:26 Patient TargetsNo targets recorded. Patient InstructionsNo instructions recorded. Reason for Referral Physical Therapist Referral for Pain of right shoulder joint Eval and treat Referring Physician: Collin Driscoll, Orthopedic Surgery, Encounter Date: 10/19/2023 Results Created Date Observation Date Name Description Value Unit Range Abnormal Flag Note LastModifiedBy Organization Detail LastModifiedTime 07/19/19 XR, knee No observ ation record ed. [facility] [place] [address], [place], [address], 07/19/2023 21:52:54 10/19/19 24 XR, shoul susan No observ ation record ed. [facility] [place] [address], [place], [address], 10/19/2023 15:14:47 04/04/20 XR, hand No observ ation record ed. [facility] [place] [address], [place], [address], 04/06/2024 09:17:10 Result Notes None recorded. Problems Name Problem SNOMED Code Status Onset Date Resolution Date Notes Provider Name and Address Organization Details Recorded Time Pain of right knee joint 60788317690632 0 Active 2023 Kinjal Randall RMA null, [place] [employer] [facility] 4 10:57:07 Pain of right shoulder joint 39010323871615 100 Active 2023 Idania Richardson [employer] null, [employer] [facility] 4 15:14:37 Pain of bilateral hands 84895434847409 109 Active 2023 WING MarshA andrea, [employer] [facility] 4 09:56:29 Problem Notes None recorded. Procedures Surgical History Date Name Laterality Status Provider Name and Address Organization Details Recorded Time 5 Ortho - Cortisone Injection completed Nancy Colindres NP [address], [place], [address], [employer] [facility] 07/06/2024 10:24:02 4 Ortho - Cortisone Injection completed Nancy Colindres NP [address], [place], [address], [employer] [facility] 04/06/2024 09:21:43 4 Ortho - Cortisone Injection completed Collin Driscoll MD [address], [place], [address], [employer] [facility] 10/19/2023 15:37:52 Ortho - Cortisone Injection completed Nancy Colindres, CIRCUIT MANAGER [address] [facility], [facility] [address], [place], [address], [facility] - [employer] [facility] 07/19/2023 21:57:14 Tubal Ligation completed Idania Gas s, [employer]ANT [employer] [facility] 10/19/2023 15:14:11 Imaging Results Imaging Date Name Status LastModified by Organiz ation Details LastModified Time 07/19/2023 XR, knee completed [facility] [place] [address], [place], [address], 07/19/2023 21:52:54 10/19/2023 XR, shoulder completed [facility] [place] [address], [place], [address], 10/19/2023 15:14:47 04/04/2024 XR, hand completed [facility] [place] [address], [place], [address], 04/06/2024 09:17:10 Procedure Notes None recorded. Medical Equipment None Reported. Allergies No known drug allergies Medications Name Sig Start Date Stop Date Status Note LastModified by Organization Details LastModified Time atorvastati n 20 mg tablet 07/05 completed Not Available Not Available Not Available azithromyci n 250 mg tablet TAKE 2 TABLETS BY MOUTH TODAY, THEN TAKE 1 TABLET DAILY FOR 4 DAYS DIRECTED 07/05 completed Not Available Not Available Not Available meloxicam 15 mg tablet TAKE 1 TABLET BY MOUTH DAILY 2024 active Not Available Not Available Not Avai lable bupivacaine HCl 0.5 % (5 mg/mL) injection solution Take 4 mg by injection route. 2024 active Not Available Not Available Not Avai lable prednisone 20 mg tablet TAKE 2 TABLETS BY MOUTH DAILY FOR 10 DAYS 07/05 completed Not Available Not Available Not Available methocarbam ol 750 mg tablet TAKE 1 TABLET BY MOUTH TWICE A DAY NEEDED FOR 10 DAYS 10/18 completed Not Available Not Available Not Available gabapentin 800 mg tablet 04/03 completed Not Available Not Available Not Available Kenalog 10 mg/mL suspension for injection Take 1 mg by injection route. 2024 active [facility]: 0003- 0494- 20 Not Available Not Available Not Available paroxetine 20 mg tablet 07/05 completed Not Available Not Available Not Available hydrochloro thiazide 12.5 mg capsule TAKE 1 CAPSULE (12.5 MG TOTAL) BY MOUTH 2 (TWO) TIMES A DAY FOR 30 DAYS. 07/05 completed Not Available Not Available Not Available omeprazole 20 mg capsule,del ayed release 07/05 completed Not Available Not Available Not Available albuterol sulfate HFA 90 mcg/actuati on aerosol inhaler INHALE 2 PUFFS INTO THE LUNGS EVERY 4 HOURS NEEDED FOR WHEEZE active Not Available Not Available No t Available losartan 50 mg-hydrochl orothiazide 12.5 mg tablet 07/05 completed Not Available Not Available Not Available tiotropium bromide 18 mcg capsule with inhalation device PLACE 1 CAPSULE (18 MCG TOTAL) INTO INHALER AND INHALE DAILY FOR 30 DAYS. 07/05 completed Not Available Not Available Not Available nebivolol 10/18 completed Not Available Not Available Not Available nebivolol 20 mg tablet active Not Available Not Available Not Available Wegovy 0.25 mg/0.5 mL subcutaneou s pen injector 10/18 completed Not Available Not Available Not Available Wegovy 0.5 mg/0.5 mL subcutaneou s pen injector 07/05 completed Not Available Not Available Not Available Vitals Date Recorded Body height Body mass index (BMI) Body weight Pain severity - 0-10 verbal numeric rating [Score] - Reported Provider Name and Address Organization Details Last Updated DateTime 07/19/2023 172.72 cm 31.9 kg/m2 51916.4 g 7 ABDULKADIR Irene [place] [facility] 07/19/2023 10:53:19 Date Recorded Body height Body mass index (BMI) Body weight Provider Name and Address Organization Details Last Updated DateTime 08/30/2023 172.72 cm 31.2 kg/m2 83160.44 g Lizet Ruthberna, ATC L [facility] [employer] 08/30/2023 10:43:28 Date Recorded Body height Body mass index (BMI) Body weight Provider Name and Address Organization Details Last Updated DateTime 10/19/2023 172.72 cm 30.9 kg/m2 28980.25 g Idania Richardson EYEWEAR CONSULTANT [facility] [employer] [facility] 10/19/2023 15:11:43 Date Recorded Body height Body mass index (BMI) Body weight Provider Name and Address Organization Details Last Updated DateTime 04/04/2024 172.72 cm 31.9 kg/m2 81477.4 g Idania Richardson EYEWEAR CONSULTANT [facility] [employer] [facility] 04/04/2024 09:55:24 Date Recorded Body height Body mass index (BMI) Body weight Pain severity - 0-10 verbal numeric rating [Score] - Reported Provider Name and Address Organization Details Last Updated DateTime 07/06/2024 172.72 cm 31.9 kg/m2 67434.4 g 8 ABDULKADIR Irene [facility] [employer] [facility] 07/06/2024 09:59:39 Social History Question Answer Notes LastModified by Organizat ion Details LastModified Time Tobacco Smoking Status Former Smoker ABDULKADIR Irene [facility] [employer] [facility] 07/19/2023 10:56:49 What Is Your Level Of Alcohol Consumption? None Information not available 10/19/2023 When Did You Quit Smoking? 6-10yearssin celastcigare tte Information not available 10/19/2023 What Was The Date Of Your Most Recent Tobacco Screening? 07/19/2023 Information not available 07/19/2023 Sex: Unknown Functional Status None recorded. Mental Status None recorded. Family History Relationship Description Onset Age of this Age Resolved Age Notes LastModified by Organization Details LastModified Time Mother Family history of malignant neoplasm [email or web address] Not available 2023 10:56:00 Sister Diabetes mellitus [email or web address] Not available 2023 10:56:12 Sister Hypertensive disorder multip le sister s Not available 10/19/2023 15:13:32 Father Diabetes mellitus Not available 2023 15:13:13 Medical History Condition Response ARTHRITIS Y HYPERTENSION Y Gynecological HistoryNo gynecological history recorded. Obstetrics History GPAL:G 0 P 0 0 0 0 Past Encounters Encounter ID Performer Location Encounter Start Date Encounter Closed Date Diagnosis/Indication Diagnosis SNOMED-CT Code Diagnosis ICD10 Code Diagnosis Note [id number] Nancy Colindres NP [facility] [place] [address] [place] [address] 07/19/2023 10:52:28 07/19/2023 11:25:15 Pain of right knee joint 7344420170 58588 M25.677 [id number] Nancy Colindres NP [facility] [place] [address] [place] [address] 08/30/2023 10:20:43 08/30/2023 11:00:04 Pain of right knee joint 3520461767 26747 M25.435 [id number] Collin Driscoll MD [facility] [place] [address] [place] [address] 10/19/2023 14:50:13 10/19/2023 16:00:50 Pain of right shoulder joint 2901916921 9741882 M25.877 [id number] Nancy Colindres, CIRCUIT MANAGER [facility] [place] [address] [place] [address] 04/04/2024 09:43:28 04/04/2024 11:41:51 Pain of bilateral hands 1762371088 9544023 M79.641 M79.156 [id number] Nancy Colindres, CHE [facility] [place] [address] [place] [address] 07/06/2024 09:56:32 07/06/2024 10:24:44 Pain of right knee joint 7071625063 07274 M25.561 Pain of bi lateral hands 5554422832 1035787 M79.641 M79.642 Health Concerns Section Related Observation LastModified by Organization Detai ls LastModified Time None Recorded Concern Status LastModified by Organization Details LastModified Time None Recorded Advance Directives Directive None Recorded Payers Encounter Date Sequence Insurance Name Policy Number Policy Roberts Covered Member ID Roberts Member ID Guarantor Name 07/19/2023 1 [place] Brandt Gibson [id number] Caridad Gibson 08/30/2023 1 [place] Brandt Gibson [id number] Caridad Reyesa 10/19/2023 1 [place] Brandt Gibson [id number] Caridad Reyesa 04/04/2024 1 [facility] (MEDICARE REPLACEMENT/A DVANTAGE - PPO) [id number] Brandt Gibson [id number] Caridad Gibson 07/06/2024 1 [facility] (MEDICARE REPLACEMENT/A DVANTAGE - PPO) [id number] Brandt Gibson [id number] Caridad Gibson OBGyn Episode No OBEpisode recorded.
--- NOTE | 2024-07-31 07:39 | EST_ITS ---
Patient Info Name: Caridad Gibson Age: 68 years : 1955 Gender: Female Ht: 68 in Wt: 200 lbs BSA: 2.11 m2 HR: 61 bpm BP: 177 / 92 mmHg Exam Date: 07/31/2024 9:46 AM Exam Location: Echo Lab Patient Status: Outpatient Admit Date: 07/31/2024 Staff Ordering Physician: Yazan Castellanos DO Attending Provider: Yazan Castellanos DO Referring Physician: Kiet Holland DPM; Exercise Technologist: Soniya Ledbetter RDCS Exercise Physician: Yazan Castellanos DO Exam Type: CA stress geeta w NM Study Info A regadenoson stress test was performed. Summary 1. 1. Negative lexiscan stress test for ischemic ST changes by ECG criteria. 2. 2. Baseline hypertension. 3. 3. Nuclear scan to follow and will be reported separately. Please correlate with it. 4. 4. Patient informed of the above results. Protocol: Lexiscan Stress ECG Details Stage: REST Duration (min): 2 min : 2 sec HR (bpm): 60 SBP (mmHg): 177 DBP (mmHg): 92 Stage: REST Duration (min): 9 min : 50 sec HR (bpm): 63 SBP (mmHg): 177 DBP (mmHg): 92 Stage: STAGE 1 Duration (min): 1 min : 0 sec HR (bpm): 74 SBP (mmHg): 177 DBP (mmHg): 92 Stage: RECOVERY Duration (min): 1 min : 0 sec HR (bpm): 84 SBP (mmHg): 188 DBP (mmHg): 64 Stage: RECOVERY Duration (min): 2 min : 0 sec HR (bpm): 82 SBP (mmHg): 188 DBP (mmHg): 64 Stage: RECOVERY Duration (min): 3 min : 0 sec HR (bpm): 83 SBP (mmHg): 188 DBP (mmHg): 64 Stage: RECOVERY Duration (min): 4 min : 0 sec HR (bpm): 83 SBP (mmHg): 162 DBP (mmHg): 72 Stage: RECOVERY Duration (min): 4 min : 8 sec HR (bpm): 82 SBP (mmHg): 162 DBP (mmHg): 72 Rest HR: 63 bpm Peak HR: 85 bpm Rest Sys BP: 177 mmHg Peak Sys BP: 188 mmHg Max Pred HR: 153 bpm % Max Pred HR: 56 % Target HR: 130 bpm Max RPP: 15,980 bpm*mmHg Termination Reason: Completed protocol Cardiac Symptoms: None Total Time: 1 min : 0 sec Rest Bethea BP: 92 mmHg Peak Bethea BP: 64 mmHg Total Dose: 0.4 mg Resting ECG Sinus rhythm, IRBBB, delayed precordial R/S transition. Stress ECG No ST changes. Arrhythmias None. Report Signatures
--- NOTE | 2024-07-31 07:39 | ECHO_ITS ---
Patient Info Name: Caridad Gibson Age: 68 years : 1955 Gender: Female Ht: 68 in Wt: 220 lbs BSA: 2.22 m2 HR: 65 bpm BP: 151 / 94 mmHg Heart Rhythm: Sinus Rhythm Technical Quality: Good Exam Date: 07/31/2024 7:44 AM Exam Location: Echo Lab Patient Status: Outpatient Admit Date: 07/31/2024 Staff Ordering Physician: Yazan Castellanos DO Behavior Management Specialist: Soniya Ledbetter RDCS Attending Provider: Yazan Castellanos DO Referring Physician: Kiet Holland DPM; Exam Type: CA echo doppler color flow Study Info Indications R06.09 - Other forms of dyspnea R07.9 - Chest pain, unspecified Complete two-dimensional, color flow and Doppler transthoracic echocardiogram is performed. Summary 1. Complete two-dimensional, color flow and Doppler transthoracic echocardiogram is performed. 2. Left ventricular chamber dimension is normal. 3. Left ventricular systolic function is normal, estimated at 60-65%. 4. There is mild concentric increased left ventricular wall thickness. 5. The left ventricular diastolic function is grade II diastolic dysfunction. 6. E/e' 12 is mildly elevated. 7. Left atrial chamber dimension is mildly enlarged. Left Ventricle E/e' 12 is mildly elevated. Left ventricular chamber dimension is normal. Left ventricular systolic function is normal, estimated at 60-65%. There is mild concentric increased left ventricular wall thickness. The left ventricular diastolic function is grade II diastolic dysfunction. Right Ventricle Right ventricular chamber dimension is normal. Right ventricular systolic function is normal. Left Atria Left atrial chamber dimension is mildly enlarged. Right Atria Right atrial chamber dimension is normal. Aortic Valve The aortic valve is trileaflet. There is no aortic valve stenosis. There is no aortic valve regurgitation. Pulmonic Valve There is no pulmonic regurgitation. Mitral Valve There is no mitral valve stenosis. There is no mitral valve regurgitation. Tricuspid Valve There is no tricuspid valve regurgitation. Pericardium/Pleural There is no pericardial effusion. Inferior Vena Cava Normal inferior vena cava with >50% collapse upon inspiration consistent with normal right atrial pressure, 5 mmHg. Aorta The aortic root size at the sinus of Valsalva is normal. Left Ventricular Outflow Tract Name Value Normal LVOT 2D LVOT Diameter 2.1 cm LVOT Doppler LVOT Peak Gradient 4 mmHg LVOT Mean Gradient 2 mmHg LVOT VTI 21 cm LVOT VTI/AV VTI Ratio 0.7 LVOT Stroke Volume 73 ml LVOT CO 4.5 l/min LVOT CI 2.0 l/min/m2 Pulmonic Valve Name Value Normal RVOT Doppler RVOT Peak Gradient 1 mmHg PV Doppler PV Peak Gradient 3 mmHg Mitral Valve Name Value Normal MV Doppler MV Decel Howell 325 cm/s2 MV PHT 79 ms MV Area (PHT) 2.8 cm2 4.0-5.0 MV Diastolic Function MV E Peak Velocity 88 cm/s MV A Peak Velocity 69 cm/s MV E/A 1.3 MV Decel Time 272 ms MV Annular TDI MV E/e' (Septal) 15.4 <=8.0 MV E/e' (Lateral) 10.3 <=8.0 MV E/e' (Average) 12.8 Tricuspid Valve Name Value Normal Estimated PAP/RSVP RA Pressure 5 mmHg <=5 Aorta Name Value Normal Ascending Aorta Ao Root Diameter (MM) 3.3 cm Ao Root Diam Index (MM) 1.5 cm/m2 Aortic Valve Name Value Normal AV Doppler AV Peak Velocity 121 cm/s AV Peak Gradient 6 mmHg AV Mean Gradient 3 mmHg AV VTI 29 cm AV Area (Cont Eq VTI) 2.5 cm2 >=3.0 AV Area (Cont Eq Keven) 3.0 cm2 AV Regurgitation 2D LVOT Area 3.5 cm2 Ventricles Name Value Normal LV Dimensions 2D/MM IVS Diastolic Thickness (2D) 1.3 cm 0.6-1.0 LVID Diastole (2D) 4.4 cm 3.8-5.2 LVIW Diastolic Thickness (2D) 1.0 cm 0.6-0.9 LVID Systole (2D) 3.1 cm 2.2-3.5 LVOT Diameter 2.1 cm LV Mass (2D Cubed) 177.46 g 67.00-162.00 LV Mass Index (2D Cubed) 80 g/m2 43-95 Relative Wall Thickness (2D) 0.46 LV Fractional Shortening/Ejection Fraction 2D/MM LV Fractional Shortening (2D) 28 % 27-45 LV EF (2D Teichyaniz) 55 % 54-74 LV Diastolic Volume (4C MOD) 76 ml LV EF (4C MOD) 61 % LV Diastolic Volume (2C MOD) 71 ml LV EF (2C MOD) 72 % LV Diastolic Volume (BP MOD) 74 ml 46-106 LV Diastolic Volume Index (BP MOD) 33 ml/m2 29-61 LV Systolic Volume (BP MOD) 24 ml 14-42 LV Systolic Volume Index (BP MOD) 11 ml/m2 8-24 LV EF (BP MOD) 67 % 54-74 LV Diastolic Length (4C) 8.5 cm LV Systolic Length (4C) 7.0 cm LV Stroke Volume (4C MOD) 46 ml Atria Name Value Normal LA Dimensions LA Dimension (MM) 4.0 cm 2.7-3.8 LA Volume (4C A-L) 60 ml LA Volume (BP A-L) 73 ml RA Dimensions RA Area (4C) 18.3 cm2 <=18.0 Report Signatures
== END 2024-07-31 07:26 | disposition home or self-care (01) ==
PROVIDERS: PCP Clinical Nurse Specialist; Referring Provider Podiatrist Foot & Ankle Surgery; Visit Provider Internal Medicine Cardiovascular Disease
DX: R06.09 Other forms of dyspnea (principal); R94.31 Abnormal electrocardiogram [ECG] [EKG]; R03.0 Elevated blood-pressure reading, without diagnosis of hypertension; I44.0 Atrioventricular block, first degree; I44.4 Left anterior fascicular block; I51.7 Cardiomegaly
CPT/HCPCS: 78452; 93005; 93017; 93306; A9502; J2785

== ENCOUNTER 2025-01-08 08:17 | Outpatient (CLI) | payer MEDICARE, SELFPAY ==
--- OUTSIDE RECORDS SUMMARY | 2025-01-08 08:27 | XMS_ITS | Patient Health Record ---
Author Organization 1 OF [facility] Address [address] [address] [place] [address] Care Team Providers Care Briquette Maker Name Role Phone Jesús Lancaster D.O. Primary Care Provider Unav ailable Neli Shelton Unavailable [phone] Allergies No Known Allergies Reason For Referral No Information Medications Medication SIG (Take, Route, Frequency, Duration) Notes Start Date End Date Status Losartan Potassium 25 MG 1 tablet Orally Once a day; Duration: 30 day(s) 03/12/2024 Active hydroCHLOROthiazide 12.5 MG TAKE 1 CAPSU LE (12.5 MG TOTAL) BY MOUTH 2 (TWO) TIMES A DAY FOR 30 DAYS. Oral; Duration: 30 Days Active Albuterol Sulfate HFA 108 (9 0 Base) MCG/ACT INHALE 2 PUFFS INTO THE LUNGS EVERY 4 HOURS NEEDED FOR WHEEZE Inhalation; Duration: 17 Days Active Tiotropium Center Monohydra te [address] CAPSULE (18 MCG TOTAL) INTO INHALER AND INHALE DAILY FOR 30 DAYS. Inhalation; Duration: 30 Days Active Atorvastatin Calcium Active Gabapentin Active PARoxetine HCl Activ e Pepcid Active Fish Oil Active Incruse Ellipta Acti ve Social History Tobacco Use: Social History Observation Description Date Details (start date - stop date) Former Smoker NA - NA Tobacco Control (Standard) Question Answer Notes Tobacco use: Former smoker Problems Problem Type SNOMED Code ICD Code Onset Dates Problem Status W/U Status Risk Notes Problem Acquired hammer toe of right foot ([id number] [id number]) Hammertoe of right foot (M20.41) Active confirmed Vital Signs Height 68 in 04/25/2024 Weight 214 lbs 04/25/2024 BMI 32.54 kg/m2 04/25/2024 Encounters Encounter Location Date Provider Diagnosis 1 OF [facility] [place] [address] [address] 03/12/2024 Neli Shelton Capsulitis of metatarsophalangeal (MTP) joint of right foot M77.51 ; Contusion of right foot, subsequent encounter S90.31XD and Right foot pain M79.671 1 OF [facility] [place] [address] [address] 04/04/2024 Neli Shelton Contusion of right f oot, subsequent encounter S90.31XD ; Capsulitis of metatarsophalangeal (MTP) joint of right foot M77.51 and Right foot pain M79.671 1 OF [facility] [address] [address] 04/25/2024 Neli Shelton Contusion of right f oot, subsequent encounter S90.31XD ; Hammertoe of right foot M20.41 and Right foot pain M79.671 Assessments Encounter Date Diagnosis (ICD Code) Assessment Notes Treatment Notes Treatment Clinical Notes Section Notes 03/12/2024 Contusion of right foot, subsequent encounter (ICD-10 - S90.31XD) 03/12/2024 Capsulitis of metatarsophalangeal (MTP) joint of right foot (ICD-10 - M77.51) Patient visit today included a review of medical history, review of systems, physical exam and discussion of exam findings, diagnostic test results, and discussion of diagnoses and treatment options. Recommended initial treatment today consisting of resting of the foot, icing of the foot, elevation of the foot. She can take [id number] medication as needed. A toe taping was applied on the second toe. She was advised to perform this at home if it feels comfortable. I recommended offloading of the foot with a surgical shoe or a Cam Walker boot. She states that she has a Cam Walker boot at home. She was advised to try to wear this consistently. I discussed potential further imaging of the foot if her symptoms do not improve. She can call with any issues prior to her next visit. 04/04/2024 Contusion of right foot, subsequent encounter (ICD-10 - S90.31XD) 04/25/2024 Contusion of right foot, subsequent encounter (ICD-10 - S90.31XD) Evaluation today included a review of medical history, review of systems, discussion of exam findings, and review of diagnoses and treatment options. Her symptoms have significantly improved. She can wear the surgical shoe as needed. I recommended that she transition into good supportive shoes. She can rest and ice the foot as needed. She'll follow up as needed for flareups of pain. 04/25/2024 Hammertoe of right foot (ICD-10 - M20.41) I discussed the right second toe deformity. She was advised to avoid shoes with a narrow toe box. I discussed the use of gel cushions on the toe. I briefly discussed surgical intervention for the second toe, if her symptoms worsen. She will call as needed. 04/04/2024 Capsulitis of metatarsophalangeal (MTP) joint of right foot (ICD-10 - M77.51) Evaluation today included a review of medical history, review of systems, discussion of exam findings, and review of diagnoses and treatment options. She was advised that it will take time for her symptoms to improve. She was advised to try to stay off the foot as much as possible. She was dispensed a surgical shoe to wear today. She can continue doing the toe taping if it feels comfortable. I discussed the potential of getting an MRI if her symptoms do not improve by the next visit. She can call with any issues prior to her next visit. 04/25/2024 Right foot pain (ICD-10 - M79.671) 03/12/2024 Right foot pain (ICD-10 - M79.671) 04/04/2024 Right foot pain (ICD-10 - M79.671) Plan Of Treatment No Information Insurance Providers Payer Name Payer Address Payer Phone Subscriber Number Group Number Insured Name Patient Relationship to Insured Coverage Start Date Coverage End Date [employer] [address] [address] [place] [address] [id number] Caridad Gibson Self - patient is the insured Medical (General) History Medical History History ICD Code Arthritis, anemia, hypertension, hyperli pidemia
--- OUTSIDE RECORDS SUMMARY | 2025-01-08 08:27 | XMS_ITS | Data Portability ---
Author Organization [place] [facility] [employer], Main Office Address [address] [place] [address] Care Team Providers Care Mirror Fabrication Supervisor Name Role Phone COLLIN MORGAN Primary Care Provider [phone] COLLIN MORGAN Referring Provider Assessment Encounter Date Assessment Date Assessment LastModified by Organization Details LastModified Time 08/30/2023 08/30/2023 67-year-old patient presents today to [...] discomfort with resisted external rotation elevation. Positive Nania. Positive Barnes, positive Marshall's. Neurovascular intact. X-rays of the shoulder were [...] proceed with that. She tolerated it well. Not available 10/19/2023 15:37:35 04/04/2024 04/04/2024 68-year-old [...] with this plan. Not available 07/06/2024 10:20:47 12/12/2024 12/12/2024 68-year-old female presents for evaluation of a new problem with her right hip. She reports no acute injury, this has been bothering her since August when she had the foot surgery. She rates her pain as 5/10. It is located over the posterior aspect of the hip. She has been taking meloxicam for other issues, otherwise has not had any other treatments. She has tenderness over the lateral hip over the trochanter which she says is different than her complaint that brought her in. Positive Trendelenburg. She also has tenderness over the posterior hip, no tenderness in the groin. No pain with log roll. Flexion 110, internal rotation 20, external rotation 40. She has 5/5 strength in hip flexion and abduction and adduction. X-rays of the hip were reviewed, demonstrating mild to moderate degenerative changes, no acute bony abnormality She has trochanteric bursitis as well as some hip arthritis. We discussed treatment options and she should continue her anti-inflammatori es we also discussed cortisone injections. She wanted to proceed with a injection her lateral hip. We will also give her a referral for a fluoro guided hip joint injection. We can see her as needed after that. She is going on a trip on vacation next month then we can see how she does on that. Not available 12/12/2024 16:12:37 Plan of Treatment Reminders Order Date Submit Date Provider Last Modified By Organization Details Last Modified Time Details Appointments None recorded. Lab None recorded. Referral physical therapist referral - Eval and treat 2023 024 [facility] [place] [facility], [address], [place], [address], 4 15:26:30 Procedures injection, hip, fluoro guidance (PROC) - R hip 4cc 1% Lidocaine & 40mg Depomedrol Precertifi cation Required?: N 2024 025 [facility], [address], [place], [address], 5 11:28:10 injection/ aspiration joint/burs a (PROC) 2024 025 [email or web address] 1 In-Office Order, Internal Use Only DO Not Attach Compendium DO Not Attach Compendium, Do Not Delete/merge, [id number] 5 15:21:31 injection/ aspiration joint/burs a (PROC) 2024 025 [email or web address] In-Office Order, Internal Use Only DO Not Attach Compendium DO Not Attach Compendium, Do Not Delete/merge, [id number] 5 10:06:41 injection/ aspiration joint/burs a (PROC) 2024 025 [email or web address] In-Office Order, Internal Use Only DO Not Attach Compendium DO Not Attach Compendium, Do Not Delete/merge, 5 10:01:13 injection/ aspiration joint/burs a (PROC) 2023 024 [email or web address] In-Office Order, Internal Use Only DO Not Attach Compendium DO Not Attach Compendium, Do Not Delete/merge, [id number] 4 10:33:52 injection/ aspiration joint/burs a (PROC) 2023 024 [email or web address] In-Office Order, Internal Use Only DO Not Attach Compendium DO Not Attach Compendium, Do Not Delete/merge, [id number] 4 15:37:25 Surgeries None recorded. Imaging XR, hip + pelvis, unilateral 2024 025 [email or web address] [facility] [place], [address], [place], [address], 5 23:10:54 XR, hand 2023 024 [facility] [place], [address], [place], [address], 4 09:17:11 XR, shoulder 2023 024 DIEUDONNE [facility] [place], [address], [place], [address], 4 12:18:43 Medication Orders bupivacain e HCl 0.5 % (5 mg/mL) injection solution [address], [address] [place] [address], [id number], 5 23:10:54 Kenalog 10 mg/mL suspension for injection [address], [address] [place] [address], [address], 5 23:10:54 bupivacain e HCl 0.5 % (5 mg/mL) injection solution [address]/[facility], [address] [place] [address], [address], 5 14:50:23 Kenalog 10 mg/mL suspension for injection [address], [address] [place] [address], [address], 5 14:50:18 bupivacain e HCl 0.5 % (5 mg/mL) injection solution [address], [address] [place] [address], [address], 5 14:50:23 Kenalog 10 mg/mL suspension for injection [address], [address] [place] [address], [address], 5 14:50:18 bupivacain e HCl 0.5 % (5 mg/mL) injection solution [address], [address] [place] [address], [address], 5 14:50:23 Kenalog 10 mg/mL suspension for injection [address], [address] [place] [address], [address], 5 14:50:18 meloxicam 15 mg tablet [address], [address] [place] [address], [id number], 5 14:50:14 bupivacain e HCl 0.5 % (5 mg/mL) injection solution [address], [address] [place] [address], [address], 5 14:50:23 Kenalog 10 mg/mL suspension for injection [address], [address] [place] [address], [address], 5 14:50:18 Patient TargetsNo targets recorded. Patient InstructionsNo instructions recorded. Reason for Referral Physical Therapist Referral for Pain of right shoulder joint Eval and treat Referring Physician: Collin Driscoll, Orthopedic Surgery, Encounter Date: 10/19/2023 Results Created Date Observation Date Name Description Value Unit Range Abnormal Flag Note LastModifiedBy Organization Detail LastModifiedTime 10/19/19 XR, shoul susan No observ ation record ed. [facility] [place] [address], [place], [address], 10/19/2023 15:14:47 04/04/20 24 XR, hand No observ ation record ed. [facility] [place] [address], [place], [address], 04/06/2024 09:17:10 12/13/19 25 XR, hip + pelvi s, unila teral No observ ation record ed. [email or web address] [facility] [place] [address], [place], [address], 12/12/2024 14:53:15 Result Notes None recorded. Problems Name Problem SNOMED Code Status Onset Date Resolution Date Notes Provider Name and Address Organization Details Recorded Time Pain of right knee joint 4204208904315 00 Active 2023 ABDULKADIR Irene null, [employer] 4 10:57:07 Pain of right shoulder joint 9851442536670 9100 Active 2023 Idania Richardson CNA null, [employer] 4 15:14:37 Pain of bilateral hands 7990861063965 9109 Active 2023 Idania Richardson CNA null, [employer] 4 09:56:29 Pain of hip region 72866873 Active 2024 Celine Avitia null, [employer] [facility] [employer] 5 14:53:11 Osteoarthri tis of hip 723847403 Active 2024 Lizet Almodovar ATC L null, [employer] [facility] [employer] [facility] 15:18:47 Problem Notes None recorded. Procedures Surgical History Date Name Laterality Status Provider Name and Address Organization Details Recorded Time 5 Ortho - Cortisone Injection completed Collin Driscoll MD [address], [place], [address], [facility] [employer] [facility] 12/12/2024 16:12:52 5 Ortho - Cortisone Injection completed Nancy Colindres NP [address], [place], [address], [facility] [employer] [facility] 07/06/2024 10:24:02 4 Ortho - Cortisone Injection completed Nancy Colindres NP [address], [place], [address], [facility] [employer] [facility] 04/06/2024 09:21:43 4 Ortho - Cortisone Injection completed Collin Driscoll MD [address], [place], [address], [facility] [employer] [facility] 10/19/2023 15:37:52 4 Ortho - Cortisone Injection completed Nancy Colindres NP [address], [place], [address], [facility] [employer] 07/19/2023 21:57:14 Tubal Ligation completed Idania armendariz CNA [facility] [employer] [facility] 10/19/2023 15:14:11 Cataract Surgery completed [facility] [employer] [facility] 12/12/2024 14:51:25 [facility] [employer] [facility] 12/12/2024 14:51:44 [facility] [employer] [facility] 12/12/2024 14:52:02 Imaging Results None recorded. Procedure Notes None recorded. Medical Equipment None [...] completed Not Available Not Available Not Available hydrocodone 5 mg-acetamin ophen 325 mg tablet TAKE 1 TABLET BY MOUTH EVERY 4-6 HOURS NEEDED FOR PAIN 12/12 completed Not Available Not Available Not Available meloxicam 15 mg tablet TAKE 1 TABLET BY MOUTH DAILY 12/12 completed Not Available Not Available Not Available ondansetron HCl 4 mg tablet TAKE 1 TABLET BY MOUTH 1 HOUR BEFORE PROCEDURE THEN EVERY 6 HOURS NEEDED X 5 DAYS 12/12 completed Not Available Not Available Not Available bupivacaine HCl 0.5 % (5 mg/mL) injection solution Take 4 mL by injection route. 2024 active Not Available [...] 10 mg/mL suspension for injection Take 1 mL by injection route. 2024 active [facility]: 0003- 0494- 20 Not Available Not Available Not Available hydrocodone 7.5 mg-acetamin ophen 325 mg tablet 1 TABLET ORALLY 1 HOUR BEFORE PROCEDURE , THEN 1 TAB EVERY 6 HOURS NEEDED FOR 7 DAYS 12/12 completed Not Available Not Available Not Available paroxetine [...] completed Not Available Not Available Not Available diazepam 5 mg tablet TAKE 3 TABLETS BY MOUTH 1 HOUR BEFORE PROCEDURE THAN EVERY 6 HOURS NEEDED X 1 DAY 12/12 completed Not Available Not Available Not Available tiotropium bromide 18 mcg capsule with inhalation device PLACE 1 CAPSULE (18 MCG TOTAL) INTO INHALER AND INHALE DAILY FOR 30 DAYS. 07/05 completed Not Available Not Available Not Available eszopiclone 2 mg tablet 2 MG ORALLY ONCE TAKE WITH YOU TO SLEEP LAB ON THE NIGHT OF SLEEP STUDY. active Not Available Not Available No t Available nebivolol 10/18 completed Not Available Not [...] Updated DateTime 07/06/2024 172.72 cm 31.9 kg/m2 82374.4 g ABDULKADIR Irene [employer] 07/06/2024 09:59:35 Date Recorded Body height Body mass index (BMI) Body weight Provider Name and Address Organization Details Last Updated DateTime 08/30/2023 172.72 cm 31.2 kg/m2 40573.44 g Lizet Almodovar ATC L [employer] 08/30/2023 10:43:28 Date Recorded Body height Body mass index (BMI) Body weight Provider Name and Address Organization Details Last Updated DateTime 10/19/2023 172.72 cm 30.9 kg/m2 00344.25 g Idania Richardson CNA [employer] 10/19/2023 15:11:43 Date Recorded Body height Body mass index (BMI) Body weight Provider Name and Address Organization Details Last Updated DateTime 12/12/2024 172.72 cm 34.1 kg/m2 104971.69 g Celine Avitia [employer] 12/12/2024 14:49:02 Date Recorded Body height Body mass index (BMI) Body weight Provider Name and Address Organization Details Last Updated DateTime 04/04/2024 172.72 cm 31.9 kg/m2 56605.4 g Idania DELONTE Richardson [facility] [employer] [facility] 04/04/2024 09:55:24 Social History Question Answer Notes LastModified by Organizat ion Details LastModified Time Tobacco Smoking Status Former Smoker Kinjal Ranadll, RMA null, [facility] [employer] [facility] 07/19/2023 10:56:49 When Did You Quit Smoking? 6-10yearssin celastcigare tte Information not available 10/19/2023 What Was The Date Of Your Most Recent Tobacco Screening? 07/19/2023 [email or web address] Information not available 07/19/2023 Sex: Unknown Functional Status Question Answer Note LastModified by Organization D etails LastModified Time What is your level of alcohol consumption? None Information not available 10/19/2023 Mental Status None recorded. Family History Relationship Description Onset Age of this Age Resolved Age Notes LastModified by Organization Details LastModified Time Mother Family history of malignant neoplasm [email or web address] Not available 2023 10:56:00 Sister Diabetes mellitus Not available 2023 10:56:12 Sister Hypertensive disorder multip le sister s Not available 10/19/2023 15:13:32 Father Diabetes mellitus Not available 2023 15:13:13 Medical History Condition Response ARTHRITIS Y HAVE YOU BEEN HOSPITALIZED OR SEEN IN [facility] ER IN THE PAST YEAR ? Y HYPERTENSION Y Gynecological HistoryNo gynecological history recorded. Obstetrics History GPAL:G 0 P 0 0 0 0 Past Encounters Encounter ID Performer Location Encounter Start Date Encounter Closed Date Diagnosis/Indication Diagnosis SNOMED-CT Code Diagnosis ICD10 Code Diagnosis Note [id number] Collin Driscoll MD [facility] [place] [address] [place] [address] 07/19/2023 10:52:28 07/19/2023 11:25:15 Pain of right knee joint 4687054387 13954 M25.698 [id number] Collin Driscoll MD [facility] [place] [address] [place] [address] 08/30/2023 10:20:43 08/30/2023 11:00:04 Pain of right knee joint 8630708830 03764 M25.846 [id number] Collin Driscoll MD [facility] [place] [address] [place] [address] 10/19/2023 14:50:13 10/19/2023 16:00:50 Pain of right shoulder joint 9564477428 7329808 M25.459 [id number] Collin Driscoll MD [facility] [place] [address] [place] [address] 04/04/2024 09:43:28 04/04/2024 11:41:51 Pain of bilateral hands 3183432310 4011568 M79.641 M79.914 [id number] Collin Driscoll MD [facility] [place] [address] [place] [address] 07/06/2024 09:56:32 07/06/2024 10:24:44 Pain of right knee joint 2362276922 54354 M25.561 Pain of bi lateral hands 0452636094 3204135 M79.641 M79.520 [id number] Collin Driscoll MD [facility] [place] [address] [place] [address] 12/12/2024 14:28:38 12/12/2024 15:31:30 Pain of hip region 90681070 M25.551 Osteoarthritis of hip 23 5495479 M16.0 M16.10 M16.11 M16.12 Health Concerns Section Related Observation LastModified by Organization Detai ls LastModified Time None Recorded Concern Status LastModified by Organization Details LastModified Time None Recorded Advance Directives Directive None Recorded Payers Insurance Date Sequence Insurance Name Policy Number Policy Roberts Covered Member ID Roberts Member ID Guarantor Name 04/04/2024 1 [place] Brandt Gibson [id number] Caridad Gibson 12/12/2024 1 [place] Caridad Gibson [id number] Caridad Gibson 12/12/2024 1 [facility] (MEDICARE REPLACEMENT/ ADVANTAGE - PPO) [id number] Brandt Gibson [id number] Caridad Gibson OBGyjerrod Episode No OBEpisode recorded.
--- NOTE | 2025-01-31 23:43 | WPDSLEEPSTUD ---
Sleep Study Date of Study: 01/08/25 Ordering Provider: CHRIS Young Interpreting Physician: Dixie Malagon MD Sleep Study Type: Split Polysomnogram Height: 1.73 m Weight: 101.605 kg Body Mass Index: 34.0 Neck Circumference (inches): 17.5 [place]: 4 Reason for Sleep Study * 11/05/2024 nocturnal hypoxemia tree on room air showed desaturation 85%, oxygen desaturation index 33 consistent with obstructive sleep apnea and 3 minutes 24 seconds spent below 88% saturation Patient now presents for split night sleep study. Sleep History Kimberly Gibson is a 69-year-old woman with history of smoking, shortness of breath, and an overnight oximetry that showed desaturation 85% and an oxygen desaturation index of 33. The VINH is a surrogate for the apnea-hypopnea index. She never awakens from sleep short of breath. She occasionally wakes at night with heartburn, belching or coughing.??She constantly snores, constantly snores loudly enough that others complain. She occasionally has trouble sleeping when she has a cold. She rarely wakes up gasping for breath during the night. She occasionally has breathing problems at night. She rarely sweats excessively at night. She never notices her heart pounding or beating irregularly during the night. She occasionally falls asleep during the day. She never falls asleep involuntarily, never falls asleep while driving. She rarely experiences loss of muscle tone with strong emotion. She never feels paralyzed on waking or falling asleep. She rarely experiences vivid dreams upon waking or falling asleep. She never feels afraid of going to sleep. She occasionally has nightmares. She occasionally recalls her dreams. She frequently has thoughts racing through her mind. She never feels sad or depressed. She frequently feels anxiety. She constantly notices parts of her body jerk. She rarely kicks during the night. She occasionally feels crawling or aching feelings in her legs. She frequently feels leg pain at night. She never has morning jaw pain, and never grinds her teeth at night. She frequently feels bothered by pain during the day, is frequently awakened by pain during the night. She frequently wakes up feeling stiff in the morning, frequently wakes feeling sore or achy in the morning. She constantly awakens with pain in her neck, spine, or joints. She has memory problems, fatigue and she takes antacids regularly. Normal bedtime is 10:00 p.m., falling asleep within 1-2 hours, waking 3 times at night. When she awakens at night she generally stays in bed trying to get back to sleep. Sometimes, returning to sleep may take an hour. She wakes between 4:00 a.m. and 5:00 a.m. She reports getting 6 hours of sleep per night. She keeps a similar schedule on weekends, bedtime is 11:00 p.m. and wake time is between 6 and 8:00 a.m.. She sometimes takes naps in the afternoon or evening. A short nap lasting 10-15 minutes may be refreshing. She feels better in the morning compared to other times of day. Habits:??Tobacco: Former smoker Caffeine: 1 large cup of coffee Alcohol: none Recreational substances: none PMFSH Past Medical History Medical History COVID-19 Arthritis Hyperlipidemia Hypertension COPD (chronic obstructive pulmonary disease) Surgical History Surgical History S/P epidural steroid injection H/O Spinal surgery Rhizotomy 2005 History of bilateral tubal ligation 1985 Family History Family History Father Family history of diabetes mellitus in first degree relative Hypertension Sibling Family history of diabetes mellitus in first degree relative Depression Anxiety Mother Family history of malignant neoplasm of breast in first degree relative Anxiety Depression Breast cancer Social History Social History Smoking packs per day: 0.5 Smoking cigarettes per day: 10.0 Years smoked: 30 Smoking pack-years: 15.00 Smoking status: Former smoker Tobacco type: cigarettes Second hand tobacco smoke exposure: No Smoking end date: 06/27/15 Alcohol intake: current Drinks per week: 2 Alcohol use details: occasionally Substance use: never Lack of Transportation: No Lack of Food: Never True Current Housing: I Have Housing Concerned About Future Housing: No Difficulty Paying Gas/Electric Bills: No Difficulty Paying for Meds: No Currently Unemployed: No Education: Trade/Vocational Certificate Difficulty w/ Childcare or Family Care: No Living arrangements: with family Spiritual care concerns: No Medications Home Medications ?Medication ?Instructions ?Recorded ?Confirmed ?Type omega-3 fatty acids [Fish Oil] 1 cap PO DAILY 05/27/23 12/25/24 History albuterol sulfate 90 mcg/actuation 2 puff inhalation Q4H PRN 03/15/24 12/25/24 History aerosol inhaler famotidine 20 mg tablet (Pepcid) 20 mg PO DAILY 03/15/24 12/25/24 History magnesium 200 mg tablet 200 mg PO DAILY 06/14/24 12/25/24 History mecobalamin (vitamin B12) 500 mcg 500 mcg PO DAILY 06/14/24 12/25/24 History chewable tablet gabapentin 800 mg tablet See Rx Instructions .Route 07/05/24 12/25/24 Rx .COMPLEX #180 tabs umeclidinium 62.5 mcg/actuation 1 inh inhalation DAILY #90 ea 07/11/24 12/25/24 Rx blister powder for inhalation (Incruse Ellipta) losartan 50 mg-hydrochlorothiazide See Rx Instructions .Route 09/28/24 12/25/24 Rx 12.5 mg tablet .COMPLEX #180 tabs nebivolol 20 mg tablet See Rx Instructions .Route 09/28/24 12/25/24 Rx .COMPLEX #90 tabs eszopiclone 2 mg tablet (Lunesta) 2 mg PO ONCE #1 tablet 11/13/24 12/25/24 Rx atorvastatin 20 mg tablet 20 mg PO QHS #90 tabs 11/23/24 12/25/24 Rx paroxetine HCl 40 mg tablet (Paxil) 40 mg PO DAILY #90 tabs 12/24/24 12/25/24 Rx Sleep Procedure A split night polysomnogram using the [employer] multi-channel system recorded the standard physiologic parameters including EEG, EOG, submentalis EMG, anterior tibialis EMG, EKG, body position, nasal and oral airflow using nasal pressure sensor and thermistor. Respiratory parameters of chest and abdominal movements were recorded with Respiratory Inductance Plethysmography belts. Oxygen saturation was recorded by pulse oximetry. Video monitoring was also performed. Sleep stages, periodic limb movements, and EEG arousals were scored in 30 second epochs according to the criteria of the AASM Scoring Manual. The Apnea-Hypopnea Index was calculated using CMS guidelines for definition of hypopnea while scoring respiratory events. After the baseline portion the patient met criteria for a titration with an AHI of 39.8 and desaturation to 86%. CPAP was initiated at 4 cm and titrated up through 10 cm. At CPAP 10 cm, the residual apnea-hypopnea index at this pressure was 4.1. The patient spent 48.5 minutes in bed at this pressure, 5 minutes awake, 43.5 minutes in non-REM, no time in REM. Sleep efficiency was 89.7%. Lowest saturation was 89%. The patient did not have REM at 10 cm but did have REM. Sleep Architecture During the diagnostic portion of the study, the total recording time was 240.5 minutes. The total sleep time was 132.5 minutes. Sleep latency was 60.0 minutes. REM latency was - minutes. Sleep Efficiency was 55.1%. The patient had 18 awakenings for an awakening index of 8.2. Wake after sleep onset time was 48.0 minutes. The patient spent 29.0 minutes, 21.9% of total sleep time in Stage N1. The patient spent 103.5 minutes, 78.1% in Stage N2. The patient spent no time in Stage N3 or Stage REM sleep. At 02:41:07 AM the patient was placed on PAP treatment and was titrated at pressures ranging from CPAP 4 cm to 10 cm. During the treatment portion of the study, the total recording time was 200.5 minutes. The total sleep time was 158.5 minutes. Sleep latency was 32.5 minutes. REM latency was 19.5 minutes. Sleep Efficiency was 79.0%. Wake after Sleep Onset time was 9.5 minutes. The patient spent 16.5 minutes, 10.4% of total sleep time in Stage N1. The patient spent 106.0 minutes, 66.9% in Stage N2. The patient spent no time in Stage N3. The patient spent 36.0 minutes, 22.7% in Stage REM. Respiratory Analysis During the diagnostic portion of the study, the patient had 68 hypopneas, 17 obstructive apneas, no mixed apneas, and 3 central apneas for an overall Apnea Hypopnea Index of 39.8 events per hour. The REM Apnea Hypopnea Index was 0 as there was no REM on the baseline. The NREM Apnea Hypopnea Index was 39.8. The patient had a Central Apnea Hypopnea Index of 1.4. There were no- Respiratory Effort Related Arousals. The Respiratory Disturbance Index is 41.2 events per hour. There was no evidence of Sal-France Respirations. During the treatment portion of the study, the patient had 8 hypopneas, no obstructive apneas, 1 mixed apnea, and 9 central apneas for an overall Apnea Hypopnea Index of 6.8 events per hour. The REM Apnea Hypopnea Index was 0. The NREM Apnea Hypopnea Index was 8.8. The patient had a Central Apnea Hypopnea Index of 3.4. There were no Respiratory Effort Related Arousals. The Respiratory Disturbance Index is 7.6 events per hour. There was no evidence of Sal-[place] Respirations. Arousals During the diagnostic portion of the study, there were a total of 76 arousals for an arousal index of 34.4. There were 14 respiratory arousals for an index of 6.3. There were no periodic limb movement arousals. There were 12 isolated limb movement arousals for an index of 5.4. There were 50 spontaneous arousals for an index of 22.6. During the treatment portion of the study, there were a total of 66 arousals for an index of 25.0. There were 4 respiratory arousals for an index of 1.5. There were 6 periodic limb movement arousals for an index of 2.3. There were 14 isolated limb movement arousals for an index of 5.3. There were 42 spontaneous arousals for an index of 15.9. Periodic Limb Movements During the diagnostic portion of the study, the patient had 23 isolated limb movements with an index of 10.4. The patient had no periodic limb movements. The patient had a total of 23 limb movements with a total limb movement index of 10.4. During the treatment portion of the study, the patient had 23 isolated limb movements with an index of 8.7. The patient had 61 periodic limb movements with an index of 23.1. The patient had a total of 84 limb movements with a total limb movement index of 31.8. Oximetry Data During the diagnostic portion of the study, the patient had an average oxygen saturation of 93% in wake with a minimum oxygen saturation of 86% and a maximum oxygen saturation of 98%. The patient had an average oxygen saturation of 91.5% in sleep with a minimum oxygen saturation of 86% and a maximum oxygen saturation of 98%. The patient had 95 oxygen desaturations resulting in an Oxygen Desaturation Index of 43.0. The patient spent 6.5 minutes, 2.8% of total sleep time with an oxygen saturation less than 88%. During the treatment portion of the study, the patient had an average oxygen saturation of 93.7% in wake with a minimum oxygen saturation of 84% and a maximum oxygen saturation of 98%. The patient had an average oxygen saturation of 91% in sleep with a minimum oxygen saturation of 84% and a maximum oxygen saturation of 97%. The patient had 29 oxygen desaturations resulting in an Oxygen Desaturation Index of 11.0. The patient spent 11.6 minutes, 5.8% of total sleep time with an oxygen saturation less than 88%. Snoring Profile Snoring was mild to moderate, eliminated during the titration. Cardiac Profile During the diagnostic portion of the study, the EKG showed normal sinus rhythm. The average pulse rate was 62.3 bpm. The minimum pulse rate was 57 bpm, maximum pulse rate was 73 bpm, no arrhythmias. During the treatment portion of the study, the EKG showed normal sinus rhythm. The average pulse rate was 62 bpm, minimum pulse rate was 57 bpm, maximum pulse rate was 72 bpm. No arrhythmias noted. EEG Profile EEG was unremarkable, no evidence of seizures. Assessment and Plan Assessment and Plan (1) Obstructive sleep apnea: Code(s): G47.33 - Obstructive sleep apnea (adult) (pediatric) Status: Acute Assessment and Plan: This split night sleep study on 01/08/2025 shows severe obstructive sleep apnea, apnea-hypopnea index is 39.8 with desaturation to 86% successfully treated using CPAP 10 cm water pressure and a large [employer]um [employer]kel Solo nasal pillow with and heated humidity. At CPAP 10 cm, the residual apnea-hypopnea index at this pressure was 4.1. The patient spent 48.5 minutes in bed at this pressure, 5 minutes awake, 43.5 minutes in non-REM, no time in REM. Sleep efficiency was 89.7%. Lowest saturation was 89%. The patient should be prescribed this ResMed equipment as well as tubing, filters and reservoir. This should be used with all episodes of sleep. Compliance should be reviewed within 31-90 days of starting therapy for usage greater than 4 hours per night greater than 70% of the nights. The patient should be asked about symptoms such as excessive daytime sleepiness, quality of sleep, decreased nocturia, increased mental functioning such as memory, mood, and concentration. BMi is 34.1. Weight management is advised. Clinical data suggests that weight loss of 10% can reduce the severity of respiratory events and snoring and improve AHI by as much as 25% Data The data obtained during this sleep study is adequate for interpretation. Certification This sleep study has been reviewed by a board certified sleep medicine physician.
[2025-01-31 23:47] VITALS: BMI 34.0
== END 2025-01-09 06:22 | disposition home or self-care (01) ==
LOC: ANHCSM 08:18
PROVIDERS: PCP Clinical Nurse Specialist; Visit Provider Physician Assistant
DX: G47.33 Obstructive sleep apnea (adult) (pediatric) (principal); G47.10 Hypersomnia, unspecified; I10 Essential (primary) hypertension; F39 Unspecified mood [affective] disorder; Z68.34 Body mass index [BMI] 34.0-34.9, adult
CPT/HCPCS: 95811

== ENCOUNTER 2025-01-22 13:19 | Outpatient (CLI) | payer MEDICARE, SELFPAY ==
--- NOTE | ~2025-01-22 | XR_ITS ---
EXAMINATION: XR lg joint inject/asp w image DATE: 01/22/2025 14:17 INDICATION: Right hip osteoarthritis with pain TECHNIQUE: A time-out was performed to verify the patient's name, date of , and procedure to b e performed. The procedure including the risks, benefits, and alternatives was discussed with the pat ient. Risks discussed included bleeding and infection. The patient understood the risks and agreed to proceed. The skin overlying the right hip joint was prepped and draped in usual sterile fashion. A nesthetic was administered with 1% lidocaine subcutaneously. A 22 G needle was advanced under fluoro scopic guidance into the joint. Injection of 1 mL of Omnipaque 240 confirmed intra-articular positio n of the needle. Subsequently, injectate consisting of 5 mm a 4:1 mixture of 1% lidocaine: 40 mg/mL Depo-Medrol for a total dosage of 40 mg Depo-Medrol was instilled. Washout of contrast was seen confi rming intra-articular administration. The needle was removed and the entry site was cleaned and dress ed. There were no immediate complications. Fluoroscopy exposure time was 2.1 minutes. The total numb er of images was 3. Total DAP was 0.599 mGycm^2 FINDINGS: Real-time fluoroscopy demonstrates the needle in the right hip joint. Patient's pain prior to procedure:8/10. Patient's pain following the procedure: 0/10. IMPRESSION: 1. Successful right hip joint injection of local anesthetic and steroid with decrease in the patient' s presenting pain. Reviewed, dictated and finalized at location A. IMPRESSION: 1. Successful right hip joint injection of local anesthetic and steroid with de crease in the patient's presenting pain.
--- OUTSIDE RECORDS SUMMARY | 2025-01-22 13:31 | XMS_ITS | Clinical Summary ---
Author Organization [facility] Address [address] [place] [address] Care Team Providers Care Filenet Developer Name Role Phone Unavailable Primary Care Provider [...] Noted Date Diagnosed Date COPD with exacerbation ([facility]) 024 Social History Tobacco Use Types Packs/Day [...] 104 03/05/2024 2:30 PM CDT Temperature 36.2 C (97.1 F) 03/05/2024 11:48 AM CDT Respiratory Rate 25 03/05/2024 2:30 PM CDT Oxygen Saturation 90% 03/05/2024 2:30 PM CDT Inhaled Oxygen Concentration - - Weight 97.4 kg (214 lb 11.7 oz) 03/05/2024 3:33 AM CDT Height 167.6 cm (5' 6) 03/04/2024 7:52 AM CDT Body Mass Index [...] 2024 05/04/2022, 05/14/2021, 09/26/2020, Additional history exists Pneumococcal Vaccine: 50+ Years Completed 03/22/2023 Meningococcal B Vaccine Aged Out No l onger eligible based on patient's age to complete this topic Meningococcal Vaccine Aged Out No theodore marlene eligible based on patient's age to complete this topic RSV Immunizations Under 20 Months Aged Out No longer eligible based on patient's age to complete this topic Insurance [facility] Advance Directives * Full Code (Latest Code Status on File) Date Activated Date Inactivated Comments 03/04/2024 10:38 AM 03/05/2024 6:58 PM
--- OUTSIDE RECORDS SUMMARY | 2025-01-22 13:31 | XMS_ITS | Data Portability ---
Author Organization [place] [facility], Main Office Address [address] [place] [address] Care Team Providers Care Mainframe Software Developer Name Role Phone COLLIN MORGAN Primary Care Provider [phone] COLLIN MORGAN Referring Provider [phone] Assessment Encounter Date Assessment Date Assessment LastModified [...] rotation elevation. Positive Naina. Positive Barnes, positive Brixey's. Neurovascular intact. X-rays of the shoulder were [...] referral - Eval and treat 2023 024 [facility] [place] [facility], [address], [place], [address], 4 15:26:30 Procedures injection, hip, fluoro guidance (PROC) - R hip 4cc 1% Lidocaine & 40mg Depomedrol Precertifi cation Required?: N 2024 025 [facility], [address], [place], [address], 5 11:28:10 injection/ aspiration joint/burs a (PROC) 2024 025 [email or web address] 1 In-Office Order, Internal Use Only DO Not Attach Compendium DO Not Attach Compendium, Do Not Delete/merge, [id number] 5 15:21:31 injection/ aspiration joint/burs a (PROC) 2024 025 In-Office Order, Internal Use Only DO Not Attach Compendium DO Not Attach Compendium, Do Not Delete/merge, [id number] 5 10:06:41 injection/ aspiration joint/burs a (PROC) 2024 025 [email or web address] In-Office Order, Internal Use Only DO Not Attach Compendium DO Not Attach Compendium, Do Not Delete/merge, 5 10:01:13 injection/ aspiration joint/burs a (PROC) 2023 024 [email or web address] In-Office Order, Internal Use Only DO Not Attach Compendium DO Not Attach Compendium, Do Not Delete/merge, [id number] 4 10:33:52 injection/ aspiration joint/burs a (PROC) 2023 024 [email or web address] In-Office Order, Internal Use Only DO Not Attach Compendium DO Not Attach Compendium, Do Not Delete/merge, [id number] 4 15:37:25 Surgeries None recorded. Imaging XR, hip + pelvis, unilateral 2024 025 [email or web address] [facility] [place], [address], [place], [address], 5 23:10:54 XR, hand 2023 024 [facility] [place], [address], [place], [address], 4 09:17:11 XR, shoulder 2023 024 DIEUDONNE [facility] [place], [address], [place], [address], 4 12:18:43 Medication Orders bupivacain e HCl 0.5 % (5 mg/mL) injection solution [address], [address] [place] [address], [address], 5 23:10:54 Kenalog 10 mg/mL suspension for injection [address], [address] [place] [address], [address], 5 23:10:54 bupivacain e HCl 0.5 % (5 mg/mL) injection solution [address]/[facility]2510, [address] [place] [address], [address], 5 14:50:23 Kenalog 10 mg/mL suspension for injection [address], [address] [place] [address], [address], 5 14:50:18 bupivacain e HCl 0.5 % (5 mg/mL) injection solution [address], [address] [place] [address], [address], 5 14:50:23 Kenalog 10 mg/mL suspension for injection [address], [address] [place] [address], [address], 5 14:50:18 bupivacain e HCl 0.5 % (5 mg/mL) injection solution [address], [address] [place] [address], [address], 5 14:50:23 Kenalog 10 mg/mL suspension for injection [address], [address] [place] [address], [address], 5 14:50:18 meloxicam 15 mg tablet [address], [address] [place] [address], [address], 5 14:50:14 bupivacain e HCl 0.5 % (5 mg/mL) injection solution [address]/[facility], [address] [place] [address], [address], 5 14:50:23 Kenalog 10 mg/mL suspension for injection [address]/[facility], [address] [place] [address], [address], 5 14:50:18 Patient TargetsNo targets recorded. Patient InstructionsNo instructions recorded. Reason for Referral Physical Therapist Referral for Pain of right shoulder joint Eval and treat Referring Physician: Collin Driscoll, Orthopedic Surgery, Encounter Date: 10/19/2023 Results Created Date Observation Date Name Description Value Unit Range Abnormal Flag Note LastModifiedBy Organization Detail LastModifiedTime 10/19/19 XR, shoul susan No observ ation record ed. [facility] [place] [address], [place], [address], 10/19/2023 15:14:47 04/04/20 24 XR, hand No observ ation record ed. [facility] [place] [address], [place], [address], 04/06/2024 09:17:10 12/13/19 25 XR, hip + pelvi s, unila teral No observ ation record ed. [email or web address] [facility] [place] [address], [place], [address], 12/12/2024 14:53:15 Result Notes None recorded. Problems Name Problem SNOMED Code Status Onset Date Resolution Date Notes Provider Name and Address Organization Details Recorded Time Pain of right knee joint 9684097156820 00 Active 2023 ABDULKADIR Irene null, [facility] [place] [facility] 4 10:57:07 Pain of right shoulder joint 7702280148574 9100 Active 2023 Idania Richardson CNA null, [facility] 4 15:14:37 Pain of bilateral hands 2081278073344 9109 Active 2023 Idania Richardson CNA null, [facility] 4 09:56:29 Pain of hip region 57816977 Active 2024 Celine Avitia null, [facility] 5 14:53:11 Osteoarthri tis of hip 500581277 Active 2024 Lizet Almodovar ATC L null, [facility] 15:18:47 Problem Notes None recorded. Procedures Surgical History Date Name Laterality Status Provider Name and Address Organization Details Recorded Time 5 Ortho - Cortisone Injection completed Collin Driscoll MD [address], [place], [address], [facility] 12/12/2024 16:12:52 5 Ortho - Cortisone Injection completed Nancy Colindres NP [address], [place], [address], [facility] 07/06/2024 10:24:02 4 Ortho - Cortisone Injection completed Nancy Colindres NP [address], [place], [address], [facility] 04/06/2024 09:21:43 4 Ortho - Cortisone Injection completed Collin Driscoll MD [address], [place], [address], [facility] 10/19/2023 15:37:52 4 Ortho - Cortisone Injection completed Nancy Colindres NP [address], [place], [address], [facility] 07/19/2023 21:57:14 Tubal Ligation completed Idania armendariz CNA [facility] [employer] [facility] 10/19/2023 15:14:11 Cataract Surgery completed [facility] [employer] [facility] 12/12/2024 14:51:25 Foot Surgery [facility] [facility] 12/12/2024 14:51:44 Hand completed [facility] [facility] 12/12/2024 14:52:02 Imaging Results None recorded. Procedure [...] 1 mL by injection route. 2024 active [facility]: [phone] [phone] Not Available Not Available [...] Updated DateTime 07/06/2024 172.72 cm 31.9 kg/m2 50555.4 g 8 ABDULKADIR Irene [facility] 07/06/2024 09:59:39 Date Recorded Body height Body mass index (BMI) Body weight Provider Name and Address Organization Details Last Updated DateTime 08/30/2023 172.72 cm 31.2 kg/m2 22528.44 g TRACY Morales [facility] 08/30/2023 10:43:28 Date Recorded Body height Body mass index (BMI) Body weight Provider Name and Address Organization Details Last Updated DateTime 10/19/2023 172.72 cm 30.9 kg/m2 39871.25 g Idania Richardson CNA [facility] 10/19/2023 15:11:43 Date Recorded Body height Body mass index (BMI) Body weight Provider Name and Address Organization Details Last Updated DateTime 12/12/2024 172.72 cm 34.1 kg/m2 271898.69 g Celine Avitia [facility] 12/12/2024 14:49:02 Date Recorded Body height Body mass index (BMI) Body weight Provider Name and Address Organization Details Last Updated DateTime 04/04/2024 172.72 cm 31.9 kg/m2 97755.4 dorene MendezDELONTE armendariz [facility] [employer] [facility] 04/04/2024 09:55:24 Social History Question Answer Notes LastModified by Organizat ion Details LastModified Time Tobacco Smoking Status Former Smoker Kinjal Randall, RMJr null, [facility] [employer] [facility] 07/19/2023 10:56:49 When Did You Quit Smoking? 6-10yearssin celastcigare tte Information not available 10/19/2023 What Was The Date Of Your Most Recent Tobacco Screening? 07/19/2023 [email or web address] Information not available 07/19/2023 Sex: Unknown Functional Status Question Answer Note LastModified by Organization D etails LastModified Time What is your level of alcohol consumption? None Information not available 10/19/2023 Mental Status None recorded. Family History Relationship Description Onset Age of this Age Resolved Age Notes LastModified by Organization Details LastModified Time Mother Family history of malignant neoplasm Not available 2023 10:56:00 Sister Diabetes mellitus [email or web address] Not available 2023 10:56:12 Sister Hypertensive disorder multip le sister s Not available 10/19/2023 15:13:32 Father Diabetes mellitus Not available 2023 15:13:13 Medical History Condition Response ARTHRITIS Y HAVE YOU BEEN HOSPITALIZED OR SEEN IN [facility] IN THE PAST YEAR ? Y HYPERTENSION Y Gynecological HistoryNo gynecological history recorded. Obstetrics History GPAL:G 0 P 0 0 0 0 Past Encounters Encounter ID Performer Location Encounter Start Date Encounter Closed Date Diagnosis/Indication Diagnosis SNOMED-CT Code Diagnosis ICD10 Code Diagnosis Note [id number] MD [facility] [place] [address] [place] [address] 07/19/2023 10:52:28 07/19/2023 11:25:15 Pain of right knee joint 9678558013 45269 M25.894 [id number] MD [facility] [place] [address] [place] [address] 08/30/2023 10:20:43 08/30/2023 11:00:04 Pain of right knee joint 6480416719 68523 M25.203 [id number] Collin Driscoll MD [facility] [place] [address] [place] [address] 10/19/2023 14:50:13 10/19/2023 16:00:50 Pain of right shoulder joint 8744181436 7791319 M25.673 [id number] Collin Driscoll MD [facility] [place] [address] [place] [address] 04/04/2024 09:43:28 04/04/2024 11:41:51 Pain of bilateral hands 5427719789 1791492 M79.641 M79.935 [id number] Collin Driscoll MD [facility] [place] [address] [place] [address] 07/06/2024 09:56:32 07/06/2024 10:24:44 Pain of right knee joint 2182472845 17622 M25.561 Pain of bi lateral hands 8344690331 9030574 M79.641 M79.476 [id number] Collin Driscoll MD [facility] [place] [address] [place] [address] 12/12/2024 14:28:38 12/12/2024 15:31:30 Pain of hip region 58979488 M25.551 Osteoarthritis of hip 23 8968982 M16.0 M16.10 M16.11 M16.12 Health Concerns Section Related Observation LastModified by Organization Detai ls LastModified Time None Recorded Concern Status LastModified by Organization Details LastModified Time None Recorded Advance Directives Directive None Recorded Payers Insurance Date Sequence Insurance Name Policy Number Policy Roberts Covered Member ID Roberts Member ID Guarantor Name 04/04/2024 1 [place] Brandt Gibson [id number] Caridad Gibson 12/12/2024 1 [place] Caridad Gibson [id number] Caridad Gibson 12/12/2024 1 [facility] (MEDICARE REPLACEMENT/ ADVANTAGE - PPO) [id number] Brandt Gibson [id number] Caridad Gibson OBGyjerrod Episode No OBEpisode recorded.
--- OUTSIDE RECORDS SUMMARY | 2025-01-22 13:32 | XMS_ITS | Patient Health Record ---
Author Organization 1 OF Jamir elder [facility] Address [address] [facility] [address] [place] [address] Care Team Providers Care Director Private Music Therapy Agency Name Role Phone Jesús Lancaster D.O. Primary Care Provider Unav ailable Neli Shelton Unavailable [phone] Allergies No Known Allergies Reason For Referral [...] WHEEZE Inhalation; Duration: 17 Days Active Tiotropium [place] [facility] [address] CAPSULE [...] Problem Acquired hammer toe of right foot (1468664582775 105) Hammertoe of right foot (M20.41) Active confirmed Vital Signs Height 68 in 04/25/2024 Weight 214 lbs 04/25/2024 BMI 32.54 kg/m2 04/25/2024 Encounters Encounter Location Date Provider Diagnosis 1 OF Jamir Emanuel [place] [address] [address] 03/12/2024 Neli Shelton Capsulitis of metatarsophalangeal (MTP) joint of right foot M77.51 ; Contusion of right foot, subsequent encounter S90.31XD and Right foot pain M79.671 1 OF Jamir Emanuel [place] [address] [address] 04/04/2024 Neli Shelton Contusion of right f oot, subsequent encounter S90.31XD ; Capsulitis of metatarsophalangeal (MTP) joint of right foot M77.51 and Right foot pain M79.671 1 OF Jamir [place] [address] [address] 04/25/2024 Neli Shelton Contusion of right f [...] elevation of the foot. She can take lzdl-fuh-qjqtjdr medication as needed. A toe taping was [...] End Date [employer] [address] [address] [place] [address] [id number] Caridad Gibson Self - patient is the insured Medical (General) History Medical History History ICD Code Arthritis, anemia, hypertension, hyperli pidemia
== END 2025-01-22 13:20 | disposition home or self-care (01) ==
PROVIDERS: PCP Clinical Nurse Specialist; Visit Provider Orthopaedic Surgery
DX: M16.0 Bilateral primary osteoarthritis of hip (principal)
CPT/HCPCS: 20610; 77002; J1010; J2003; Q9966

== ENCOUNTER 2025-04-08 11:43 | Outpatient (CLI) | payer MEDICARE, SELFPAY ==
--- OUTSIDE RECORDS SUMMARY | 2024-03-05 10:20 | XMS_ITS ---
Author Organization [address] [facility] Address [address] [place] [address] Care Team Providers Care Institutional Asset Manager Name Role Phone Jesús Lancaster D.O. Primary Care Provider Unav ailable Neli Shelton Unavailable [phone] REASON FOR VISIT Right foot pain Encounters Encounter Location Date Provider Diagnosis [address] [facility] [address] [place] [address] 03/05/2024 Neli Shelton Plan Of Treatment No [...] * Caridad OLEA FDOB:1955 (69 yo F)Acc No.[id number]:03/05/2024 Progress Notes Patient: Caridad Dee Provider: Maren Shelton DPM :1955 A ge:68 Y S ex:Female Date:03/05/2024 Address:[address] [place], [place] [id number] Pcp:Sloane Álvarez Subjective: * Chief Complaints: * R ight foot pain * HPI: Chandan Norris assisting with visit:: HPI/Rooming: . ..... P [facility] reason for visit:: New Patient Evaluation: 7 [...] Electronic signature of Queta Shelton DPM on 04/08/2025 at 01:02 PM CDT Sign off status: Pending * Provider: Maren Shelton DPM Date: 0 03/05/2024 Generated for Rosa chu/Arnel/Martín on: 1 01:02 PM CDT
--- NOTE | 2025-04-08 | ECG_ITS ---
Test Date: 2025-04-08 12:17:14 Measurements Intervals [place] Rate: 77 P: 2 WA: 246 QRS: -59 QRSD: 140 T: 68 QT: 407 QTc: 463 Interpretive Statements SINUS RHYTHM WITH FIRST DEGREE AV BLOCK LEFT ANTERIOR FASCICULAR BLOCK LEFT VENTRICULAR HYPERTROPHY WITH ST-T CHANGE CANNOT R/O SEPTAL INFARCT, AGE INDETERMINATE ABNORMAL ECG Compared to ECG 07/31/2024 08:41:46 NO SIGNIFICANT CHANGE Electronically Signed On 04-08-2025 15:47:31 CDT by Yazan Castellanos D.O.
[2025-04-08 12:16] LABS: Hematocrit 37.7 % (37.0-47.0); Hemoglobin 12.3 g/dL (12.0-15.0); Immature Granulocyte Percent A 0.4 % (0-0.5); Lymphocytes Absolute Auto 1.79 K/mm3 (0.9-3.2); Mean Corpuscular HGB Conc 32.6 g/dl (32-36); Mean Corpuscular Hemoglobin 30.6 pg (26-34); Mean Corpuscular Volume 93.8 fl (80-100); Nucleated Red Blood Cells Absolute Auto 0.000 K/mm3 (0.0-0.012); Nucleated Red Blood Cells Perc 0.0 % (0.0-0.2); Platelet Count Result 259 k/mm3 (150-375); Red Blood Count 4.02 M/mm3 (4.2-5.4); White Blood Count 5.3 K/mm3 (4.5-10.0)
[2025-04-08 12:29] LABS: Add Urine Microscopic? YES; Appearance Urine Clear (Clear); Glucose Urine UA Negative (Negative); Leukocyte Esterase Ur 2+ LEU/UL (Negative); Nitrate Urine Negative (Negative); Non Pathogenic Casts 0-2; Specific Grav Ur 1.012 (1.001-1.035)
[2025-04-08 12:41] LABS: Alanine Aminotransferase 41 U/L (6-35); Albumin Level 4.6 g/dL (3.5-5.1); Alkaline Phosphatase 66 U/L (38-126); Anion Gap 8 mmol/L (4-12); Aspartate Amino Transferase 41 U/L (14-36); Bilirubin,Total 0.7 mg/dL (0.2-1.3); Blood Urea Nitrogen 14 mg/dL (7-17); Calcium 10.0 mg/dL (8.4-10.2); Carbon Dioxide 29 mmol/L (22-30); Chloride 95 mmol/L (98-107); Estimated Glomerular Filt Rate > 60; Glucose 94 mg/dL (65-110); Potassium 3.9 mmol/L (3.4-5.0); Sodium 132 mmol/L (137-145); Total Protein 8.0 g/dL (6.3-8.2)
--- OUTSIDE RECORDS SUMMARY | 2025-04-08 13:02 | XMS_ITS | Clinical Summary ---
Author Organization [facility] Address [address] [place] [address] Care Team Providers Care Logging Supervisor Name Role Phone Unavailable Primary Care Provider [...] Noted Date Diagnosed Date COPD with exacerbation 03/04/2024 Social History Tobacco Use Types Packs/Day Years [...] Dexa Scan (General) 2021 COVID-19 Vaccine ( - 2024- season) 2025 05/04/2022, 05/14/2021, 09/26/2020, Additional history exists Influenza Adult (#1) 2025 05/04/2022, 04/05/2021, 05/04/2020, Additional history exists Pneumococcal Vaccine: 50+ Years Completed 03/22/2023 Meningococcal B Vaccine Aged Out No l onger eligible based on patient's age to complete this topic Meningococcal Vaccine Aged Out No theodore marlene eligible based on patient's age to complete this topic RSV Immunizations Under 20 Months Aged Out No longer eligible based on patient's age to complete this topic Insurance [facility] MEDIC[facility] Advance Directives * Full Code (Latest Code Status on File) Date Activated Date Inactivated Comments 03/04/2024 10:38 AM 03/05/2024 6:58 PM
--- OUTSIDE RECORDS SUMMARY | 2025-04-08 13:02 | XMS_ITS | Patient Health Record ---
Author Organization [facility] OF [facility] Address [address] [place] [address] Care Team Providers Care Motor Driver Name Role Phone Jesús Lancaster D.O. Primary Care Provider Unav ailNeli Gilliland Unavailable [phone] Allergies No Known Allergies Reason For Referral No Information Medications Medication SIG (Take, Route, Frequency, Duration) Notes Start Date End Date Status Losartan Potassium 25 MG Tablet 1 tablet Orally Once a day; Duration: 30 day(s) 03/12/2024 Active hydroCHLOROthiazide 12.5 MG Capsule TAKE 1 CAPSULE (12.5 MG TOTAL) BY MOUTH 2 (TWO) TIMES A DAY FOR 30 DAYS. Oral; Duration: 30 Days Active Albuterol Sulfate HFA 108 (9 0 Base) MCG/ACT Aerosol Solution INHALE 2 PUFFS INTO THE LUNGS EVERY 4 HOURS NEEDED FOR WHEEZE Inhalation; Duration: 17 Days Active Tiotropium [place] Monohydra te [address] CAPSULE (18 MCG TOTAL) INTO INHALER AND INHALE DAILY FOR 30 DAYS. Inhalation; Duration: 30 Days Active Atorvastatin Calcium Active Gabapentin Active PARoxetine HCl Activ e Pepcid Active Fish Oil Active Incruse Ellipta Acti ve Social History Tobacco Use: Social History Observation Description Date Details (start date - stop date) Former Smoker NA - NA Social History Tobacco Use: Social Info Question Answer Notes Tobacco Control (Standard) Tobacco use: Former smoker Additional Details Category Social Info Options Details Miscellaneous: Exercise: Active Occupation: Retired Living with: spouse Drugs/Alcohol: Alcohol use: Social alcoho l use Recreational drugs Patient denie s recreational drug use Problems Problem Type SNOMED Code ICD Code Onset Dates Problem Status W/U Status Risk Notes Problem Acquired hammer toe of right foot ([id number] 105) Hammertoe of right foot (M20.41) Active confirmed Vital Signs Height 68 in 04/25/2024 Weight 214 lbs 04/25/2024 BMI 32.54 kg/m2 04/25/2024 Encounters Encounter Location Date Provider Diagnosis [facility] OF [facility] [address] [place] [place] [address] 04/25/2024 Neli Shelton Contusion of right foot, subsequent encounter S90.31XD ; Hammertoe of right foot M20.41 and Right foot pain M79.671 Assessments Encounter Date Diagnosis (ICD Code) Assessment Notes Treatment Notes Treatment Clinical Notes Section Notes 04/25/2024 Contusion of right foot, subsequent encounter [...] symptoms worsen. She will call as needed. 04/25/2024 Right foot pain (ICD-10 - M79.671) Plan Of Treatment No Information Insurance Providers Payer Name Payer Address Payer Phone Subscriber Number Group Number Insured Name Patient Relationship to Insured Coverage Start Date Coverage End Date [employer] [address] [address] [place] [address] [id number] Paige Caridad Self - patient is the insured Medical (General) History Medical History History ICD Code Arthritis, anemia, hypertension, hyperli pidemia
[2025-04-09 12:08] LABS: C-Reactive Protein, Cardiac 1.96 mg/L (0.00-3.00)
== END 2025-04-08 11:44 | disposition home or self-care (01) ==
PROVIDERS: PCP Clinical Nurse Specialist; Visit Provider Nurse Practitioner Family
DX: Z01.818 Encounter for other preprocedural examination (principal); I44.0 Atrioventricular block, first degree; I44.4 Left anterior fascicular block
CPT/HCPCS: 36415; 80053; 81001; 85025; 85652; 86141; 87086; 93005

== ENCOUNTER 2025-06-07 08:08 | Outpatient (CLI) | payer MEDICARE, SELFPAY ==
[2025-06-07 10:38] LABS: Alanine Aminotransferase 32 U/L (6-35); Albumin Level 4.4 g/dL (3.5-5.1); Alkaline Phosphatase 84 U/L (38-126); Anion Gap 6 mmol/L (4-12); Aspartate Amino Transferase 43 U/L (14-36); Bilirubin,Total 0.8 mg/dL (0.2-1.3); Blood Urea Nitrogen 12 mg/dL (7-17); Calcium 10.0 mg/dL (8.4-10.2); Carbon Dioxide 29 mmol/L (22-30); Chloride 95 mmol/L (98-107); Cholesterol 230 mg/dL (0-200); Estimated Glomerular Filt Rate > 60; Glucose 97 mg/dL (65-110); HDL Direct 39 mg/dL; Magnesium 2.2 mg/dL (1.6-2.3); Potassium 4.6 mmol/L (3.4-5.0); Sodium 130 mmol/L (137-145); Total Protein 8.1 g/dL (6.3-8.2); Triglycerides 202 mg/dL (<150)
== END 2025-06-07 08:09 | disposition home or self-care (01) ==
PROVIDERS: PCP Clinical Nurse Specialist; Visit Provider Clinical Nurse Specialist
DX: J44.9 Chronic obstructive pulmonary disease, unspecified (principal); I10 Essential (primary) hypertension; R42 Dizziness and giddiness
CPT/HCPCS: 36415; 80053; 80061; 83735

== ENCOUNTER 2025-06-14 07:13 | Outpatient (CLI) | payer MEDICARE, SELFPAY ==
--- OUTSIDE RECORDS SUMMARY | 2024-03-05 09:20 | XMS_ITS ---
Author Organization 1 OF Jamir elder [facility] Address [address] [place] [address] Care Team Providers Care Spreader Box Operator Name Role Phone Jesús Lancaster D.O. Primary Care Provider Unav ailable Neli Shelton Unavailable [phone] REASON FOR VISIT Right foot pain Encounters Encounter Location Date Provider Diagnosis 1 OF Jamir Emanuel [facility] [address] [place] [address] 03/05/2024 Neli Shelton Plan Of Treatment No Information History and Physical Notes * HPI (History of Present Illness) Category Sub-Category Detail Notes Category Not es Primary reason for visit: New Patient Evaluation: 68 year old female, referred by PTO with chief complaint of of days weeks months duration aggravated by MA assisting with visit: HPI/Rooming: ..... Examination Category Sub-Category Detail Notes Category Not es General Examination Mental status: Cooperative, Oriented to person, place and time, Mood and affect: normal, Judgement and intellect: normal with appropriate response to questions Shoes today: XXXX Constitutional / Appearance: No acute di stress , Well nourished, Appropriate personal hygiene Lower Extremity VASCULAR: Pulses: DP and PT pulse s, palpable, bilateral Temperature gradient: warm from proximal to distal, bilateral Pedal hair: present, bilateral Capillary refill at distal toes less parviz n 3 seconds Lower Extremity NEURO: Neurological status: norm al sensation to sharp/ dull with normal and symmetric muscle tone bilateral Lower Extremity MSK: Left lower extremit y inspection and palpation: No palpable masses or nodules noted. Right lower extremity inspec tion and palpation: No palpable masses or nodules noted. Gait Gait unremarkable wi th normal posture, propulsion and balance Lower Extremity DERM: Skin: well hydra loc , no suspicious lesions, without interdigital maceration, bilateral Progress Notes * Caridad OLEA FDOB:1955 (69 yo F)Acc No.[id number]:03/05/2024 Progress Notes Patient: Caridad Dee Provider: Maren Shelton DPM :1955 A ge:68 Y S ex:Female Date:03/05/2024 Address:[address] [place], [place] [id number] Pcp:Sloane Álvarez Subjective: * Chief Complaints: * R ight foot pain * HPI: Chandan Norris assisting with visit:: HPI/Rooming: . ..... P [facility] reason for visit:: New Patient Evaluation: [age] year old female, referred by PTO with chief complaint of of days weeks months duration aggravated by. * ROS: G ENERAL: NAUSEA, FEVER OR CHILLS d enies, d enies. U NEXPLAINED LOSS OR GAIN OF WEIGHT d enies. U NEXPLAINED FATIGUE OR LACK OF ENERGY d enies. R ECENT FALL d enies. P ERIPHERAL VASCULAR: FATIGUE IN CALF MUSCLE WHILE WALKING d enies. P AIN, SWELLING OR FEELING OF TIGHTNESS IN LEG d enies. F REQUENT OR CHRONIC SWELLING OF LEGS d enies. T OES TURN BLUE, WHITE, PAINFUL WITH COLD TEMPERATURE d enies. N EUROLOGICAL: DIZZINESS, LIGHT HEADED OR FAINTING d enies. W EAKNESS OR PARALYSIS d enies. D IFFICULTY WITH BALANCE d enies. P ERIPHERAL NEUROLOGICAL: BURNING, TINGLING, STINGING SENSATION OF FEET d enies. N UMBNESS OF FOOT / FEET d enies. W EAKNESS OF FOOT / FEET d enies. G ASTROINTESTINAL: ABDOMINAL PAIN d enies. B LOODY STOOL d enies. F REQUENT HEARTBURN d enies. F REQUENT NAUSEA OR VOMITING d enies. S KIN: EXCESSIVE SWEATING OF FEET / HANDS d enies. C HRONIC OR RECURRENT SKIN RASH d enies. N ONHEALING SKIN LESIONS d enies. T ENDENCY TO FORM THICK SCARS (KELOIDS) d enies. M USCULOSKELETAL: LOW BACK PAIN d enies. H IP PAIN d enies. K NEE PAIN d enies. S WELLING / STIFFNESS JOINTS OF HANDS / FEET d enies. E NDOCRINE: DELAYED HEALING OF WOUNDS d enies. I NTOLERANCE TO HEAT OR COLD d enies. E XCESSIVE THIRST d enies. F REQUENT URINATION d enies. ? H EMATOLOGY/ONCOLOGY: ANEMIA d enies. B LEED or BRUISE EASILY d enies.?ANTI-COAGULANT USE d enies. Objective: * Examination: G eneral Examination: Constitutional / Appearance: N o acute distress , Well nourished, Appropriate personal hygiene. Mental status: C ooperative, Oriented to person, place and time, Mood and affect: normal, Judgement and intellect: normal with appropriate response to questions. Shoes today: X XXX. L ower Extremity VASCULAR: : Pulses: D P and PT pulses, palpable, bilateral. Temperature gradient: w arm from proximal to distal, bilateral. Pedal hair: p resent, bilateral. Capillary refill at distal toes l ess than 3 seconds. ? L ower Extremity DERM: : Skin: w ell hydrated , no suspicious lesions, without interdigital maceration, bilateral. L ower Extremity NEURO: : Neurological status: n ormal sensation to sharp/ dull with normal and symmetric muscle tone bilateral. L ower Extremity MSK: : Gait G ait unremarkable with normal posture, propulsion and balance. Left lower extremity inspection and palpation: N o palpable masses or nodules noted.. Right lower extremity inspection and palpation: N o palpable masses or nodules noted. . * Electronic signature of Queta Shelton DPM on 06/14/2025 at 07:15 AM COMPRESSOR MECHANIC [employer] Sign off status: Pending * Provider: Maren Shelton DPM Date: 0 03/05/2024 Generated for Rosa chu/Arnel/Martín on: 1 08/15/2024 07:15 AM [employer]
--- OUTSIDE RECORDS SUMMARY | 2025-06-14 07:16 | XMS_ITS | Patient Health Record ---
Author Organization 1 [facility] Address [address] [place] [address] Care Team Providers Care Marketing And Promotions Manager Name Role Phone Jesús Lancaster D.O. Primary Care Provider Unav ailNeli Gilliland Unavailable [phone] Allergies No Known Allergies Reason For Referral [...] WHEEZE Inhalation; Duration: 17 Days Active Tiotropium [place] Monohydra te [address] [...] Problem Acquired hammer toe of right foot ([id number] 105) Hammertoe of right foot (M20.41) Active confirmed Plan Of Treatment No Information Insurance Providers Payer Name Payer Address Payer Phone Subscriber Number Group Number Insured Name Patient Relationship to Insured Coverage Start Date Coverage End Date [employer] [address] [address] [place] [address] [id number] Caridad Gibson Self - patient is the insured Medical (General) History Medical History History ICD Code Arthritis, anemia, hypertension, hyperli pidemia
[2025-06-14 07:53] LABS: Anion Gap 9 mmol/L (4-12); Blood Urea Nitrogen 13 mg/dL (7-17); Calcium 10.0 mg/dL (8.4-10.2); Carbon Dioxide 28 mmol/L (22-30); Chloride 98 mmol/L (98-107); Estimated Glomerular Filt Rate > 60; Glucose 95 mg/dL (65-110); Potassium 4.6 mmol/L (3.4-5.0); Sodium 135 mmol/L (137-145)
== END 2025-06-14 07:14 | disposition home or self-care (01) ==
PROVIDERS: PCP Clinical Nurse Specialist; Visit Provider Clinical Nurse Specialist
DX: E87.1 Hypo-osmolality and hyponatremia (principal); I10 Essential (primary) hypertension
CPT/HCPCS: 36415; 80048